=== PATIENT | male | born 1965 | race Hispanic/Latino ===

== ENCOUNTER → 2019-01-24 | Outpatient (CLI) | payer MEDICAID ==
[~2019-01-24] VITALS: Ht 188 cm; Wt 142.0 kg
[~2019-01-24] MED LIST: REGADENOSON 0.4 MG/5 ML PF SYG IVP SCH
== END | disposition home or self-care (01) ==
LOC: SHCH 07:57
PROVIDERS: ATTEND Internal Medicine Cardiovascular Disease
DX: R07.9 Chest pain, unspecified (principal); R06.09 Other forms of dyspnea
CPT/HCPCS: 78452; 93017; 96374; A9500 ×2; J2785

== ENCOUNTER → 2019-01-29 | Outpatient (CLI) | payer MEDICAID | END | disposition home or self-care (01) | LOC: SHCH 12:06 | PROVIDERS: ATTEND Internal Medicine Cardiovascular Disease | DX: I87.2 Venous insufficiency (chronic) (peripheral) (principal); R59.0 Localized enlarged lymph nodes; R07.9 Chest pain, unspecified; R06.09 Other forms of dyspnea | CPT/HCPCS: 93970 ==

== ENCOUNTER → 2019-04-08 | Outpatient (CLI) | payer MEDICAID | END | disposition home or self-care (01) | LOC: SHCH 07:59 | PROVIDERS: ATTEND Internal Medicine Cardiovascular Disease | DX: I82.812 Embolism and thrombosis of superficial veins of left lower extremity (principal); Z09 Encounter for follow-up examination after completed treatment for conditions other than malignant neoplasm | CPT/HCPCS: 93971 ==

== ENCOUNTER → 2022-10-21 | Outpatient (CLI) | payer MEDICAID ==
[2022-10-21 11:57] LABS: BASOPHILS # (AUTO) 0.04 K/uL (0.00-0.20); BASOPHILS % (AUTO) 0.7 % (0.0-5.0); EOSINOPHILS # (AUTO) 0.24 K/uL (0.00-0.70); EOSINOPHILS % (AUTO) 4.1 % (0.0-8.0); HEMATOCRIT 33.9 % (42-54); IMMATURE GRANULOCYTE ABSOLUTE 0.02 K/uL (0-1); LYMPHOCYTES # (AUTO) 2.1 K/uL (1.0-4.8); LYMPHOCYTES % (AUTO) 35.8 % (21.0-51.0); MEAN CORPUSCULAR HEMOGLOBIN 26.8 pg (27.0-33.0); MEAN CORPUSCULAR HGB CONC 31.9 g/dL (32.0-36.0); MEAN CORPUSCULAR VOLUME 84.1 fL (79-99); MONOCYTES # (AUTO) 0.6 K/uL (0.1-1.0); MONOCYTES % (AUTO) 10.5 % (3.0-13.0); NEUTROPHILS # (AUTO) 2.8 K/uL (1.8-7.7); NEUTROPHILS % (AUTO) 48.6 % (40.0-77.0); PLATELET COUNT (AUTO) 262 K/uL (130-400); RED BLOOD CELL COUNT(AUTO) 4.03 MIL/uL (4.50-6.20); RED CELL DISTRIBUTION WIDTH 15.7 % (11.0-15.5); WHITE BLOOD COUNT (AUTO) 5.8 K/uL (4.8-10.8)
[2022-10-21 12:10] LABS: CREATININE 1.2 mg/dL (0.5-1.5); POTASSIUM 4.2 mmol/L (3.5-5.1)
[2022-10-21 12:35] LABS: INR 0.93 (0.85-1.15); PROTHROMBIN TIME 10.3 SEC (9.6-11.6)
[2022-10-21 12:36] LABS: PARTIAL THROMBOPLASTIN TIME 28.5 SEC (26.3-35.5)
== END | disposition home or self-care (01) ==
LOC: LAB 08:41
PROVIDERS: ATTEND Internal Medicine Cardiovascular Disease
DX: I10 Essential (primary) hypertension (principal); I87.1 Compression of vein
CPT/HCPCS: 36415; 80048; 85025; 85610; 85730

== ENCOUNTER → 2024-04-17 | Outpatient (CLI) | payer MEDICAID ==
--- NOTE | 2024-04-17 14:52 | HMCIMG ---
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 There is normal compressibility at all levels. There is no intraluminal clot. There is no occlusion. Adequate response is obtained on augmentation. Impression: No evidence of DVT.
== END | disposition home or self-care (01) ==
LOC: RAH 13:53
PROVIDERS: ATTEND Internal Medicine Cardiovascular Disease
DX: I82.210 Acute embolism and thrombosis of superior vena cava (principal)
CPT/HCPCS: 93970

== ENCOUNTER → 2024-05-29 | Outpatient (CLI) | payer MEDICAID | END | disposition home or self-care (01) | LOC: SHCH 14:19 | PROVIDERS: ATTEND Internal Medicine Cardiovascular Disease | DX: I08.0 Rheumatic disorders of both mitral and aortic valves (principal) | CPT/HCPCS: 93306 ==

== ENCOUNTER → 2024-07-04 | Outpatient (CLI) | payer MEDICAID | END | disposition home or self-care (01) | LOC: SHCH 10:59 | PROVIDERS: ATTEND Internal Medicine Cardiovascular Disease | DX: I70.203 Unspecified atherosclerosis of native arteries of extremities, bilateral legs (principal) | CPT/HCPCS: 93925 ==

== ENCOUNTER 2024-07-17 14:59 | Observation (INO) | payer MEDICAID ==
[~2024-07-17] VITALS: Ht 188 cm; Wt 148.8 kg
--- NOTE | 2024-07-17 15:28 | ERN ---
General Chief Complaint: Shortness of Breath Stated Complaint: SOB Time Seen by MD: 15:01 Source: patient History of Present Illness Initial Comments PATIENT IS A 58-YEAR-OLD MALE COMING IN TO BE EVALUATED FOR SHORTNESS OF BREATH. PATIENT WAS SEEN BY HIS PCP AND WAS SENT IN FOR FURTHER EVALUATION. PATIENT WAS ALSO SEEN BY HIS CONSERVATION SPECIALIST DR. CRUZ WHO STATES THAT PATIENT HAS BEEN COMPLAINING OF SHORTNESS OF BREATH IN HIS HERE FOR FURTHER EVALUATION. Allergies: Coded Allergies: Penicillins (Verified Allergy, Unknown, 08/03/13) Past Medical History Past Medical History: Diabetes-Type II, Hypertension, NE, Stroke Past Surgical History: Other ROS Dictation CONSTITUTIONAL: NO CHILLS, NO FEVER, NO WEAKNESS, NO DIAPHORESIS, NO MALAISE. HEAD/FACE: NO SIGNS OF TRAUMA. EENT: NO EYE PAIN, NO BLURRED VISION, NO TEARING, NO DOUBLE VISION, NO EAR PAIN, NO EAR DISCHARGE, NO NOSE PAIN, NO NASAL CONGESTION, NO THROAT PAIN, NO THROAT SWELLING, NO MOUTH PAIN. RESPIRATORY: NO COUGH, NO ORTHOPNEA, NO SOB, NO STRIDOR, NO WHEEZING. CARDIOVASCULAR: NO CHEST PAIN, NO EDEMA, NO PALPITATIONS, NO SYNCOPE. GASTROINTESTINAL/ABDOMINAL: NO ABDOMINAL PAIN, NO CONSTIPATION, NO DIARRHEA, NO NAUSEA, NO VOMITING. GENITOURINARY: NO ABNORMAL DISCHARGE, NO DYSURIA, NO FREQUENT URINATION, NO HEMATURIA. NO COMPLAINTS OF PAIN IN THE GENITALS. MUSCULOSKELETAL: NO BACK PAIN, NO GOUT, NO JOINT PAIN, NO JOINT SWELLING, NO MUSCLE PAIN, NO MUSCLE STIFFNESS, NO NECK PAIN. INTEGUMENTARY: NO CHANGE IN COLOR, NO CHANGE IN HAIR/NAILS, NO DRYNESS, NO LESION, NO LUMPS, NO RASH. NEUROLOGICAL/PSYCH: NO ANXIETY, NOT DEPRESSED, NO EMOTIONAL PROBLEM, NO HEADACHE, NO NUMBNESS, NO PRE-EXISTING DEFICIT, NO HISTORY OF SEIZURES, NO TREMORS, NO WEAKNESS. HEMATOLOGIC/LYMPHATIC: NOT ANEMIC, NO HISTORY OF BLOOD CLOTS, NO APPARENT BLEEDING, NO BRUISING, GLANDS NOT SWOLLEN. ALL SYSTEMS NEGATIVE, EXCEPT NOTED. Physical Exam Physical Exam Dictation VITAL SIGNS: REVIEWED. GENERAL APPEARANCE: ALERT, ORIENTED X3, NO ACUTE DISTRESS, OBESE. HEAD AND FACE: NON-TRAUMATIC. EYES: PERRL, PINK CONJUNCTIVAS, EYELID NO TRAUMA, ANTERIOR CHAMBER CLEAR. EARS: PINNAS INTACT AND NO SIGNS OF TRAUMA OR ERYTHEMA. EAR CANALS CLEAR AND NO DISCHARGE. TMS NO ERYTHEMA. NOSE: NO DISCHARGE, NO BLEEDING. OROPHARYNX: MOUTH NORMAL, TEETH NO CARIES, TONGUE PINK. PHARYNX CLEAR, NO ERYTHEMA. TONSILS NO EXUDATES, NO ABSCESSES NOTED. MUCOUS MEMBRANE MOIST. NECK: SUPPLE, NON-TENDER, NO THYROMEGALY, NO MASSES, NO JVD, NO BRUITS. BREAST: DEFERRED. CHEST: NO TENDERNESS, NO CREPITUS, NO PARADOXICAL MOVEMENT, NO RETRACTIONS. LUNGS: CLEAR, WELL-VENTILATED, SYMMETRIC, NO RALES, NO WHEEZING, NO RHONCHI, NO STRIDOR, GOOD BREATH SOUNDS BILATERALLY. HEART: REGULAR RATE, REGULAR RHYTHM, NO MURMUR, NO GALLOPS. VASCULAR: NO PERIPHERAL EDEMA. ABDOMEN: SOFT, POSITIVE BOWEL SOUNDS, NONDISTENDED, NO GUARDING, NONTENDER, NO REBOUND, NO MASSES NO HEPATOMEGALY, NO SPLENOMEGALY, NO ILM'S SIGN, NO HERNIAS. RECTAL: DEFERRED. GENITAL: DEFERRED. NEUROLOGICAL: NORMAL SPEECH, GROSS MOTOR FUNCTION INTACT, GROSS SENSORY FUNCTION INTACT. MUSCULOSKELETAL: NECK NONTENDER, FULL RANGE OF MOTION, BACK NONTENDER, FULL RANGE OF MOTION. EXTREMITIES: NONTENDER, FULL RANGE OF MOTION. SKIN: COLOR PINK, DRY, NO TURGOR, NO RASH, NO LACERATIONS, NO ABRASIONS, NO CONTUSIONS. LYMPHATICS: DEFERRED. Results Laboratory and Microbiology Lab and Micro Result Laboratory Tests Test 07/17/24 15:43 07/17/24 15:57 Urine Color YELLOW (YELLOW) Urine Appearance CLOUDY (CLEAR) H Urine pH 6.0 (5.0-8.0) Urine Specific [place] 1.012 (1.001-1.031) Urine Protein 300 mg/dL (NEGATIVE) H Urine Glucose (UA) 200 mg/dL (NEGATIVE) H Urine Ketones NEGATIVE mg/dL (NEGATIVE) Urine Occult Blood LARGE (NEGATIVE) H Urine Nitrate NEGATIVE (NEGATIVE) Urine Bilirubin NEGATIVE mg/dL (NEGATIVE) Urine Urobilinogen 0.2 mg/dL (0.2-1.0) Urine Leukocyte Esterase 500 Taylor/uL (NEGATIVE) H Urine RBC 51-100 /HPF (0-1) H Urine WBC TNTC /HPF (0-1) H Urine WBC Clumps (Auto) MANY /HPF (0-1) Urine Squamous Epithelial Cells RARE /HPF (0-2) Urine Bacteria MANY /HPF (None Seen) Urine Hyaline Casts 2-5 /LPF (0-1 /LPF) H White Blood Count 5.8 K/uL (4.8-10.8) Red Blood Count 4.19 MIL/uL (4.50-6.20) L Hemoglobin 11.4 g/dL (14.0-18.0) L Hematocrit 34.1 % (42-54) L Mean Corpuscular Volume 81.4 fL (79-99) Mean Corpuscular Hemoglobin 27.2 pg (27.0-33.0) Mean Corpuscular Hemoglobin Concent 33.4 g/dL (32.0-36.0) Red Cell Distribution Width 14.1 % (11.0-15.5) Platelet Count 259 K/uL (130-400) Mean Platelet Volume 10.3 fL (7.5-10.5) Immature Granulocyte % (Auto) 0.3 % (0-1) Neutrophils (%) (Auto) 49.2 % (40.0-77.0) Lymphocytes (%) (Auto) 32.6 % (21.0-51.0) Monocytes (%) (Auto) 16.4 % (3.0-13.0) H Eosinophils (%) (Auto) 1.0 % (0.0-8.0) Basophils (%) (Auto) 0.5 % (0.0-5.0) Neutrophils # (Auto) 2.8 K/uL (1.8-7.7) Lymphocytes # (Auto) 1.9 K/uL (1.0-4.8) Monocytes # (Auto) 1.0 K/uL (0.1-1.0) Eosinophils # (Auto) 0.06 K/uL (0.00-0.70) Basophils # (Auto) 0.03 K/uL (0.00-0.20) Absolute Immature Granulocyte (auto 0.02 K/uL (0-1) Nucleated Red Blood Cells 0.0 % (0.0-0.19) White Cell Morphology Comment See comments Prothrombin Time 10.4 SEC (9.6-11.6) Prothromb Time International Ratio 0.98 (0.85-1.15) Activated Partial Thromboplast Time 22.8 SEC (26.3-35.5) L D-Dimer Quantitative (PE/DVT) 2061 ng/mL (0-500) *H Sodium Level 130 mmol/L (136-145) L Potassium Level 3.7 mmol/L (3.5-5.1) Chloride Level 95 mmol/L (101-111) L Carbon Dioxide Level 27 mmol/L (21-32) Blood Urea Nitrogen 28 mg/dL (7-18) H Creatinine 2.1 mg/dL (0.5-1.3) H Glomerular Filtration Rate Calc 36 mL/min (>90) Random Glucose 255 mg/dL (70-105) H Total Calcium 9.4 mg/dL (8.5-10.1) Magnesium Level 2.00 mg/dL (1.80-2.40) Total Creatine Kinase 108 U/L (21-232) Troponin I High Sensitivity 10 ng/L (4-75) B-Type Natriuretic Peptide 46 pg/mL (0-100) Triglycerides Level 200 mg/dL (30-200) Cholesterol Level 194 mg/dL (<200) LDL Cholesterol 82 mg/dL (0-99) HDL Cholesterol 49 mg/dL (29-71) Labs Reviewed?: Yes MDM MDM: Differential diagnosis: Shortness of breath, cardiac history, CAD, Rationale: Tests considered and ordered secondary to shared decision making include: labs, ECG and radiology Previous outside records reviewed: Old ER visits. Risk of complication and/or morbidity or mortality of patient management: None Medications-Per medication reconciliation Need for hospitalization: Patient does meet criteria for hospitalization. Need for emergency major/minor surgery: No There are no social concerns with this patient. Prescription drug management Prescriptions will include symptomatic care Patient's prior external medical records from other ER visits were reviewed by me as indicated. Prior testing and results from previous visits were reviewed. Prior tests were taken into account with medical decision making and resource utilization, independent historian/historians were used to obtain complete medical history. I independently interpreted the test that were performed, results were reviewed by me and considered findings on radiology if ordered. Medical management and examination interpretation discussions were had by me with other qualified healthcare professionals as indicated for the patient's care. Patient is a 58-year-old gentleman coming in to be evaluated for shortness of breath. Per Dr. Cruz the security lead patient is to be evaluated for shortness of breath. Elevated D-dimer kidney function did not allow was to perform a CT angio so V/Q scan will be performed. Patient will be admitted under the care of hospitalist group for ongoing management. ED Course Orders Procedure Category Date Status Time Cbc With Differential LAB 07/17/24 Complete 15:24 Prothrombin Time With LAB 07/17/24 Complete INR 15:24 B-Type Natriuretic LAB 07/17/24 Complete Peptide 15:24 Lipid Panel LAB 07/17/24 Complete 15:24 D-Dimer LAB 07/17/24 Complete 15:24 Chest 1vw RAD 07/17/24 Resulted 15:24 12 Lead Ekg Tracing- EKG 07/17/24 Logged Technical 15:24 Magnesium LAB 07/17/24 Complete 15:24 Creatine Kinase, Total LAB 07/17/24 Complete 15:24 Troponin I High LAB 07/17/24 Complete Sensitivity 15:24 Urinalysis Profile LAB 07/17/24 Complete 15:24 Partial LAB 07/17/24 Complete Thromboplastin Time 15:24 Basic Metabolic Panel LAB 07/17/24 Complete 15:24 Culture Urine SHARI 07/17/24 In Process 16:02 Nm Pulmonary/Lung NM 07/17/24 Logged Vent/Perf Vq 16:26 Levofloxacin 500 PHA 07/17/24 In Process Mg/D5w 100 Ml 17:00 Levofloxacin 250 PHA 07/18/24 In Process Mg/D5w 50ml (Levaquin 17:00 Current Medications Medications (Trade) Dose Ordered Sig/Wily Route PRN Reason Start Time Stop Time Status Last Admin Dose Admin Levofloxacin/ Dextrose 50 ml @ 50 mls/hr Q24H IVPB 07/18/24 17:00 07/28/24 16:59 Levofloxacin/ Dextrose 100 ml @ 100 mls/hr ONCE ONCE IV 07/17/24 17:00 07/17/24 17:59 07/17/24 16:58 Vital Signs Date Time Temp Pulse Resp B/P (MAP) Pulse Ox O2 Delivery O2 Flow Rate FiO2 07/17/24 15:38 87 22 157/84 100 Room Air* 0 21 07/17/24 15:01 98.4 90 20 158/87 99 Room Air DX & DISP Disposition: Inpatient Decision to Admit Time: 17:22 Departure Impression: Primary Impression: Shortness of breath Additional Impression: History of CAD (coronary artery disease) Condition: Stable Referrals: GEOVANY KEANE MD (PCP) KIMBERLEY ALBARRAN MD July 17, 2024 15:28
[2024-07-17 15:58] LABS: APPEARANCE,URINE CLOUDY (CLEAR); BILIRUBIN,URINE NEGATIVE (NEGATIVE); COLOR,URINE YELLOW (YELLOW); GLUCOSE, URINE (UA) 200 mg/dL (NEGATIVE); KETONES,URINE NEGATIVE (NEGATIVE); LEUKOCYTE ESTERASE ,URINE 500 Leu/uL (NEGATIVE); NITRATE,URINE NEGATIVE (NEGATIVE); OCCULT BLOOD,URINE LARGE (NEGATIVE); PROTEIN,URINE 300 mg/dL (NEGATIVE); UROBILINOGEN,URINE 0.2 mg/dL (0.2-1.0)
[2024-07-17 16:01] LABS: ADD UA MICROSCOPIC YES
[2024-07-17 16:06] LABS: BACTERIA,URINE MANY /HPF (None Seen); RBC,URINE 51-100 /HPF (0-1); SQUAMOUS EPITHELIAL CELL,UR RARE /HPF (0-2); WBC CLUMP MANY /HPF (0-1); WBC,URINE TNTC /HPF (0-1)
[2024-07-17 16:12] LABS: BASOPHILS # (AUTO) 0.03 K/uL (0.00-0.20); BASOPHILS % (AUTO) 0.5 % (0.0-5.0); EOSINOPHILS # (AUTO) 0.06 K/uL (0.00-0.70); HEMATOCRIT 34.1 % (42-54); IMMATURE GRANULOCYTE ABSOLUTE 0.02 K/uL (0-1); LYMPHOCYTES # (AUTO) 1.9 K/uL (1.0-4.8); LYMPHOCYTES % (AUTO) 32.6 % (21.0-51.0); MEAN CORPUSCULAR HEMOGLOBIN 27.2 pg (27.0-33.0); MEAN CORPUSCULAR HGB CONC 33.4 g/dL (32.0-36.0); MEAN CORPUSCULAR VOLUME 81.4 fL (79-99); MONOCYTES % (AUTO) 16.4 % (3.0-13.0); NEUTROPHILS # (AUTO) 2.8 K/uL (1.8-7.7); NEUTROPHILS % (AUTO) 49.2 % (40.0-77.0); PLATELET COUNT (AUTO) 259 K/uL (130-400); RED BLOOD CELL COUNT(AUTO) 4.19 MIL/uL (4.50-6.20); RED CELL DISTRIBUTION WIDTH 14.1 % (11.0-15.5); WHITE BLOOD COUNT (AUTO) 5.8 K/uL (4.8-10.8)
[2024-07-17 16:20] LABS: CREATININE 2.1 mg/dL (0.5-1.3); POTASSIUM 3.7 mmol/L (3.5-5.1)
[2024-07-17 16:22] LABS: INR 0.98 (0.85-1.15); PROTHROMBIN TIME 10.4 SEC (9.6-11.6)
[2024-07-17 16:23] LABS: PARTIAL THROMBOPLASTIN TIME 22.8 SEC (26.3-35.5)
--- NOTE | 2024-07-17 16:24 | HMCIMG ---
Exam Type: CHEST 1VW Clinical Information: SOB Comparison: None Findings: The lungs are clear of infiltrates. The heart is enlarged. Bony and soft tissue structures of the chest wall are unremarkable. IMPRESSION: Cardiomegaly. Clear lungs.
[2024-07-17 16:42] LABS: B-TYPE NATRIURETIC PEPTIDE 46 pg/mL (0-100)
[2024-07-17] MEDS: levoFLOXacin 500 MG/D5W 100 ML 100 ML IV ONE (16:58)
--- NOTE | 2024-07-17 17:22 | HP ---
[facility] HISTORY AND PHYSICAL Date of Service: July 17, 2024 Time of Service: 17:15 HISTORY OF PRESENT ILLNESS: [ ] Admission date 07/17/2024 PCP: Dr Jose L Gonsales MD This is a 58-year-old male that presents in ED with evaluation of shortness a breath patient was sent by his PCP. Patient was also seen by his residential life director's Dr. Cruz apparently patient has been complaining about shortness a breath therefore is here for further evaluation. Ongoing for three months patient was started on Lasix given to lower extremity edematous +2. Associated symptoms vomiting he reports it being cleared and salty. Patient denied chest pain, or palpitation. Patient reports this morning he was walking and had a ground level fall and scraped his knee. Patient denies fever and chills, flank pain. Labs results sodium 130 chloride 95 BUN 29 creatinine 2.1 E GFR 36 glucose 255, WBCs 5.8 Hemoglobin 11.4 hematocrit 34.1 platelets 259 UA positive leukocytes esterase 500 PATIENT IS SEEN IN ED PATIENT LYING IN BED; PATIENT APPEARS TO BE UNCOMFORTABLE LAYING IN BED REQUESTED TO SIT IN CHAIR. DENIES CHEST PAIN. REVIEW OF SYSTEMS CONSTITUTIONAL: Denies fevers, chills, or night sweats. No unintentional weight loss reported. NEUROLOGICAL: Denies headache, amaurosis fugax, motor weakness, sensory deficit, vertigo/spinning sensation, gait abnormalities, or tremors. ENT: No hearing loss, otalgia, otorrhea, rhinitis, rhinorrhea, hoarseness, or sore throat. CARDIOVASCULAR: Denies any exertional angina, dyspnea on exertion, orthopnea, p aroxysmal nocturnal dyspnea, palpitations, life-threatening arrhythmias, claudication. PULMONARY: Denies any shortness of breath, cough, phlegm/sputum, hemoptysis, pleuritic chest pain. SLEEP: Denies morning headaches, daytime somnolence or napping. Denies difficulty falling asleep, staying asleep, waking from sleep. Denies knowledge of snoring. GASTROINTESTINAL: Denies any type of dysphagia to either liquids or solids. Denies nausea, vomiting, pyrosis, early satiety, abdominal pain, diarrhea, constipation, or changes in stool consistency or caliber. Denies coffee-ground emesis, hematemesis, hematochezia, or melanotic stools. GENITOURINARY: Denies frequency, urgency, nocturia, hematuria or incontinence (Storage/Irritative symptoms.) Low urinary stream, straining to void, urinary intermittency or hesitancy, splitting of the voiding stream, terminal dribbling. ENDOCRINOLOGIC: Denies polyuria, polydipsia, polyphagia or heat/cold intolerances. HEMATOLOGIC: Denies thrombophilia/previous clots, or coagulopathy/bleeding disorders. ONCOLOGIC: Denies personal history of malignancy. DERMATOLOGIC: Denies rashes or pruritus. PSYCHIATRIC: Denies any suicidal or homicidal ideation. Denies hallucinations. PAST MEDICAL HISTORY: [ ]DM HTN, HLD AND OBESITY [place], STROKE PAST SURGICAL HISTORY: [ ] KNEE SX , NECK SX PAST SOCIAL HISTORY: [ ] FAMILY HISTORY: [ ]NONCONTRIBUTORY Coded Allergies: Penicillins (Verified Allergy, Unknown, 08/03/13) PHYSICAL EXAM GENERAL APPEARANCE: The patient is awake, alert, and oriented, in no acute cardiopulmonary distress. NEUROLOGICAL: Cranial nerves II-XII grossly intact. Motor is 5/5 in bilateral upper and lower extremities proximal to distal. No sensory deficits. HEENT: Face is symmetric. Pupils are equal and reactive. Extraocular movements are intact. NECK: Supple. No JVD. No thyromegaly. No submental, submandibular, pre- /postauricular, occipital or supraclavicular lymphadenopathy. CHEST: Normal chest expansion. No Telemetry. LUNGS: Absence of any rales, rhonchi or any wheezing. CARDIOVASCULAR: Regular. S1 and S2 normal. No appreciable rubs, murmurs or gallops. ABDOMEN: Soft, nontender, and nondistended. There is no rebound, voluntary guarding, or rigidity. : Deferred. No [place]. EXTREMITIES: Non-edematous and not cyanotic. No clubbing. Good capillary refill. SKIN: No skin breakdown. Vital Sign (Last 24 Hours) 07/17/24 07/17/24 15:01 15:38 Temp 98.4 Pulse 87 Resp 22 B/P (MAP) 157/84 Pulse Ox 100 O2 Delivery Room Air* O2 Flow Rate 0 FiO2 21 LABS: Laboratory: Test 07/17/24 15:57 07/17/24 15:43 Range/Units White Blood Count 5.8 4.8-10.8 K/uL Red Blood Count 4.19 L 4.50-6.20 MIL/uL Hemoglobin 11.4 L 14.0-18.0 g/dL Hematocrit 34.1 L 42-54 % Mean Corpuscular Volume 81.4 79-99 fL Mean Corpuscular Hemoglobin 27.2 27.0-33.0 pg Mean Corpuscular Hemoglobin Concent 33.4 32.0-36.0 g/dL Red Cell Distribution Width 14.1 11.0-15.5 % Platelet Count 259 130-400 K/uL Mean Platelet Volume 10.3 7.5-10.5 fL Immature Granulocyte % (Auto) 0.3 0-1 % Neutrophils (%) (Auto) 49.2 40.0-77.0 % Lymphocytes (%) (Auto) 32.6 21.0-51.0 % Monocytes (%) (Auto) 16.4 H 3.0-13.0 % Eosinophils (%) (Auto) 1.0 0.0-8.0 % Basophils (%) (Auto) 0.5 0.0-5.0 % Neutrophils # (Auto) 2.8 1.8-7.7 K/uL Lymphocytes # (Auto) 1.9 1.0-4.8 K/uL Monocytes # (Auto) 1.0 0.1-1.0 K/uL Eosinophils # (Auto) 0.06 0.00-0.70 K/uL Basophils # (Auto) 0.03 0.00-0.20 K/uL Absolute Immature Granulocyte (auto 0.02 0-1 K/uL Nucleated Red Blood Cells 0.0 0.0-0.19 % White Cell Morphology Comment See comments Prothrombin Time 10.4 9.6-11.6 SEC Prothromb Time International Ratio 0.98 0.85-1.15 Activated Partial Thromboplast Time 22.8 L 26.3-35.5 SEC D-Dimer Quantitative (PE/DVT) 2061 *H 0-500 ng/mL Sodium Level 130 L 136-145 mmol/L Potassium Level 3.7 3.5-5.1 mmol/L Chloride Level 95 L 101-111 mmol/L Carbon Dioxide Level 27 21-32 mmol/L Blood Urea Nitrogen 28 H 7-18 mg/dL Creatinine 2.1 H 0.5-1.3 mg/dL Glomerular Filtration Rate Calc 36 >90 mL/min Random Glucose 255 H 70-105 mg/dL Total Calcium 9.4 8.5-10.1 mg/dL Magnesium Level 2.00 1.80-2.40 mg/dL Total Creatine Kinase 108 21-232 U/L Troponin I High Sensitivity 10 4-75 ng/L B-Type Natriuretic Peptide 46 0-100 pg/mL Triglycerides Level 200 30-200 mg/dL Cholesterol Level 194 <200 mg/dL LDL Cholesterol 82 0-99 mg/dL HDL Cholesterol 49 29-71 mg/dL Urine Color YELLOW YELLOW Urine Appearance CLOUDY H CLEAR Urine pH 6.0 5.0-8.0 Urine Specific [place] 1.012 1.001-1.031 Urine Protein 300 H NEGATIVE mg/dL Urine Glucose (UA) 200 H NEGATIVE mg/dL Urine Ketones NEGATIVE NEGATIVE mg/dL Urine Occult Blood LARGE H NEGATIVE Urine Nitrate NEGATIVE NEGATIVE Urine Bilirubin NEGATIVE NEGATIVE mg/dL Urine Urobilinogen 0.2 0.2-1.0 mg/dL Urine Leukocyte Esterase 500 H NEGATIVE Taylor/uL Urine RBC 51-100 H 0-1 /HPF Urine WBC TNTC H 0-1 /HPF Urine WBC Clumps (Auto) MANY 0-1 /HPF Urine Squamous Epithelial Cells RARE 0-2 /HPF Urine Bacteria MANY None Seen /HPF Urine Hyaline Casts 2-5 H 0-1 /LPF /LPF Current Medications Medications (Trade) Dose Ordered Sig/Wily Route PRN Reason Start Time Stop Time Status Last Admin Dose Admin Levofloxacin/ Dextrose 50 ml @ 50 mls/hr Q24H IVPB 07/18/24 17:00 07/28/24 16:59 DIAGNOSTICS / RADIOLOGY: [ ] ASSESSMENT: ongoing Shortness a breath with minimal exertion POA Suspecting PE POA UTI POA Electrolyte derangement sodium 130 BLAINE suspecting ATN POA Diabetes type 2 with hyperglycemia Uncontrolled essential hypertension s/p ground level fall, sustained knee abrasion POA morbid obesity: BMI 42 POA PLAN: [ ] Admit: Medical-surgical with tele condition: Guarded Status: Full code Consultants residential life director's, COBBLER SOLE IVF: NS at 75 mL/hour Antibiotics Levaquin 250 IV every24 hours We will follow urine cultures Test: V/Q scan, renal sonogram CT abd /pelvis without contrast Labs cbc, cmp, mag+ Replace electrolytes as needed as per protocol to keep potassium above 4.0 magnesium 2.0. A.c. HS monitoring with sliding scale coverage Home medications pending to be reviewed by RN nurse. Avoid NSAIDs strict I&O PRN: MEDICATIONS TYLENOL 650 MG PO EVERY 4 HRS FOR FEVER ZOFRAN 4 MG IV EVERY 6 HRS FOR N/V HYDRALAZINE 10 MG IV EVERY 4 HRS SYSTOLIC PRESSURE > 160 Supportive measures: DVT ppx, GI ppx all questions answered time spent: > 35 min Supervising MD: Dr. Lawton c/d This document was generated in part using voice recognition software, occasional wrong word or sound alike substitutions may have occurred due to the inherent limitations of voice recognition software. Read the chart carefully and recognize using context, where the substitutions have occurred. Although every effort was made to edit the content, survival equipment repairer and typing errors may occur ADVANCED CARE PLANNING 1. Which of the following were discussed? Hospice Care - Yes / No Therapeutic options - Yes / No Advance Directives - Yes / No Other discussions - 2. Discussed with who? 3. Voluntary nature of this service was explained to the patient? Yes / No 4. Amount of time spent - 5. Reviewed by Physician? (if this service was performed by NPP) Yes / No ATTESTATION BY PHYSICIAN I have seen and examined the patient. I reviewed the documentation, medical decision making, and treatment plan as noted by the mid-level provider above. I agree with the findings and plan of care. DOUGIE LAWTON MD, ELIZABETH NP July 17, 2024 17:22
[2024-07-17] MEDS ORDERED: acetaMINOPHEN 325 MG TAB PO PRN (17:30)
[2024-07-17] MEDS ORDERED: ondanSETRON 4MG INJ IVP PRN (17:30)
[2024-07-17] MEDS ORDERED: LACTULOSE 20 GM/30 ML UDCUP PO PRN (17:30)
[2024-07-17] MEDS ORDERED: hydrALAZine 20MG/ML VIAL IV PRN (17:30)
--- NOTE | 2024-07-17 18:08 | HMCIMG ---
ULTRASOUND RENAL COMPLETE INDICATION: Acute kidney injury TECHNIQUE: Routine ultrasound of the kidneys and urinary bladder with grayscale and color Doppler imaging was performed in real-time, and subsequently made available for review. COMPARISON: No prior studies available for comparison. FINDINGS: The right kidney measures 13.1 x 5.0 x 5.4 cm. No abnormal mass demonstrated. No evidence for hydronephrosis or shadowing stone. The left kidney measures 12.9 x 5.8 x 6.1 cm. No abnormal mass demonstrated. No evidence for hydronephrosis or shadowing stone. Urinary bladder is incompletely distended. No free fluid demonstrated. IMPRESSION: Normal sonographic appearance of the kidneys and urinary bladder.
[2024-07-17] MEDS: 0.9%NACL 1000ML 1,000 ML IV SCH (18:21)
--- NOTE | 2024-07-17 18:48 | HMCIMG ---
ULTRASOUND VENOUS DOPPLER, BILATERAL LOWER EXTREMITIES INDICATION: Bilateral lower extremity pain and swelling TECHNIQUE: Routine grayscale and color Doppler ultrasound of the bilateral lower extremity veins performed. COMPARISON: No priors. FINDINGS: The demonstrated veins of the bilateral lower extremity including the common femoral vein, femoral vein, and popliteal vein are associated with normal compressibility, augmentation, and flow. Normal respiratory variation was identified. No evidence for echogenic intraluminal thrombus formation. IMPRESSION: No sonographic evidence for deep venous thrombosis within the bilateral lower extremity veins.
--- NOTE | 2024-07-17 18:51 | HMCIMG ---
CT ABDOMEN WITHOUT CONTRAST. CT PELVIS WITHOUT CONTRAST. INDICATION: Abdominal distention and vomiting TECHNIQUE: Routine transaxial imaging using 5 mm slice thickness through the abdomen and pelvis without the administration of IV contrast. Thin slice reconstructions are also provided. Coronal and sagittal reformatted images acquired for interpretation. CT was performed with one or more of the following dose reduction techniques: Automated exposure control, adjustment of the mA and/or kV according to patient size, or use of iterative reconstruction technique. COMPARISON: None FINDINGS: ON NONCONTRAST IMAGING: ABDOMEN: Heart size is normal. Visible lung bases are clear. No abnormal renal calcifications, hydronephrosis, perinephric inflammation, or proximal hydroureter detected. Small simple right renal cyst. The liver is normal in size and smooth in contour without biliary duct dilation. The spleen is normal in size and attenuation. The gallbladder is absent. The pancreas appears normal without pancreatic duct dilation. The adrenal glands appear normal. No significant abdominal, retrocrural or retroperitoneal adenopathy noted. No evidence for intra-abdominal free air or organized fluid collection. No aortic aneurysmal dilation identified. PELVIS: No abnormal calcifications within the urinary bladder or distal ureters. No evidence for free air or organized pelvic fluid collection. No significant pelvic adenopathy detected. Several diverticula along the colon. Terminal ileum appears unremarkable. The appendix appears normal. Mild thoracolumbar spondylosis. IMPRESSION: Diverticulosis coli without evidence for any acute intra-abdominal or pelvic process.
--- NOTE | 2024-07-17 18:54 | EKG ---
[facility] Test Date: 2024-07-17 Test Time: 15:38:24 Pat Name: RIOS MCNAMARA Department: EDHIP Patient ID: [id number] Room: ED 12 Gender: M Reed Repairer: [id number] : 1965 Requested By: KIMBERLEY ALBARRAN Order Number: [id number] Reading MD: Elieser Ornelas Measurements Intervals [place] Rate: 93 P: 36 KS: 172 QRS: 19 QRSD: 95 T: 43 QT: 361 QTc: 450 Interpretive Statements Sinus rhythm No previous ECG available for comparison Electronically Signed On 07-17-2024 21:37:09 CDT by Elieser Ornelas Please click the below link to view image of tracing.
--- NOTE | 2024-07-17 19:18 | NUR ---
PT CARE ASSUMED AT THIS TIME
--- NOTE | 2024-07-17 21:03 | HMCIMG ---
NM PULMONARY/LUNG VENT/PERF VQ HISTORY: sob TECHNIQUE: The patient was injected with 5mCi of technetium 99 MAA. Anterior, posterior and oblique images were obtained. 6 mCi of xenon-133 was used for the ventilation part of the study. Comparison study chest x-ray dated 07/17/2024 FINDINGS: There is homogeneous distribution of the radiotracer in both lungs. There is normal hilar and cardiac attenuation defect. No large wedge-shaped or focal perfusion defects are seen. IMPRESSION: Low probability for PE.
--- NOTE | 2024-07-17 23:13 | NUR ---
REPORT GIVEN TO MIGUEL MCGRATH AT THIS TIME
[2024-07-17 23:25] VITALS: BP 136/88; PULSE 95; RESP 18; TEMP 98.3
[2024-07-18] VITALS (7 sets, daily range): BP systolic 141–182; BP diastolic 69–104; PULSE 54–96; RESP 18–20; TEMP 97.7–98.9; O2SAT 96–97
[2024-07-18] MEDS: guaiFENesin-DM 200/20MG 10ML PO PRN (01:38)
[2024-07-18 03:53] LABS: BASOPHILS # (AUTO) 0.02 K/uL (0.00-0.20); BASOPHILS % (AUTO) 0.3 % (0.0-5.0); EOSINOPHILS % (AUTO) 1.7 % (0.0-8.0); HEMATOCRIT 31.9 % (42-54); IMMATURE GRANULOCYTE ABSOLUTE 0.04 K/uL (0-1); LYMPHOCYTES # (AUTO) 1.7 K/uL (1.0-4.8); LYMPHOCYTES % (AUTO) 28.6 % (21.0-51.0); MEAN CORPUSCULAR HEMOGLOBIN 27.1 pg (27.0-33.0); MEAN CORPUSCULAR HGB CONC 32.9 g/dL (32.0-36.0); MEAN CORPUSCULAR VOLUME 82.4 fL (79-99); MONOCYTES % (AUTO) 17.6 % (3.0-13.0); NEUTROPHILS % (AUTO) 51.1 % (40.0-77.0); PLATELET COUNT (AUTO) 255 K/uL (130-400); RED BLOOD CELL COUNT(AUTO) 3.87 MIL/uL (4.50-6.20); RED CELL DISTRIBUTION WIDTH 14.2 % (11.0-15.5); WHITE BLOOD COUNT (AUTO) 5.9 K/uL (4.8-10.8)
[2024-07-18 04:10] LABS: ALBUMIN 2.5 g/dL (3.5-5.0); BILIRUBIN,TOTAL 0.6 mg/dL (0.2-1.0); CREATININE 2.2 mg/dL (0.5-1.3); MAGNESIUM 2.1 mg/dL (1.80-2.40); POTASSIUM 4.2 mmol/L (3.5-5.1); TOTAL PROTEIN, SERUM 7.4 g/dL (6.0-8.3)
--- NOTE | 2024-07-18 08:58 | NUR ---
DCP: HOME Pt on SSI, has Medicaid. Lives in apt with Teressa [phone]. 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 Provider assists with stand by assist with bath, dressing, home management, transportation, shopping, laundry and meal prep. Pt uses cane to ambulate. PCP is Kory Domingo and uses [facility] for rx needs. Pt denies dc needs. Plans tto return home at me. Brother edy Elizabeth [phone]. Addendum: 07/18/24 at 0903 by NELSON HUANG Amended: Links added.
--- NOTE | 2024-07-18 10:28 | PN ---
[facility] PROGRESS NOTE Date of Service: July 18, 2024 Time of Service: 10:25 SUBJECTIVE: [ ] This is a 58-year-old male that presents in ED with evaluation of shortness a breath patient was sent by his PCP. Patient was also seen by his oncology account specialist's Dr. Cruz apparently patient has been complaining about shortness a breath therefore is here for further evaluation. Ongoing for three months patient was started on Lasix given to lower extremity edematous +2. Associated symptoms vomiting he reports it being cleared and salty. Patient denied chest pain, or palpitation. Patient reports this morning he was walking and had a mal und level fall and scraped his knee. Patient denies fever and chills, flank pain. 07/19/23 patient was sitting in chair edematous to lower extremity improved. Patient's cough improved. Being treated for UTI waiting for oncology account specialist's for further workup if needed. Patient denied chest pain doing well on room air. REVIEW OF SYSTEMS CONSTITUTIONAL: Denies fevers, chills, or night sweats. No unintentional weight loss reported. NEUROLOGICAL: Denies headache, amaurosis fugax, motor weakness, sensory deficit, vertigo/spinning sensation, gait abnormalities, or tremors. ENT: No hearing loss, otalgia, otorrhea, rhinitis, rhinorrhea, hoarseness, or sore throat. CARDIOVASCULAR: Denies any exertional angina, dyspnea on exertion, orthopnea, paroxysmal nocturnal dyspnea, palpitations, life-threatening arrhythmias, claudication. PULMONARY: Denies any shortness of breath, cough, phlegm/sputum, hemoptysis, pleuritic chest pain. SLEEP: Denies morning headaches, daytime somnolence or napping. Denies difficulty falling asleep, staying asleep, waking from sleep. Denies knowledge of snoring. GASTROINTESTINAL: Denies any type of dysphagia to either liquids or solids. Denies nausea, vomiting, pyrosis, early satiety, abdominal pain, diarrhea, constipation, or changes in stool consistency or caliber. Denies coffee-ground emesis, hematemesis, hematochezia, or melanotic stools. GENITOURINARY: Denies frequency, urgency, nocturia, hematuria or incontinence (Storage/Irritative symptoms.) Low urinary stream, straining to void, urinary intermittency or hesitancy, splitting of the voiding stream, terminal dribbling. ENDOCRINOLOGIC: Denies polyuria, polydipsia, polyphagia or heat/cold intolerances. HEMATOLOGIC: Denies thrombophilia/previous clots, or coagulopathy/bleeding disorders. ONCOLOGIC: Denies personal history of malignancy. DERMATOLOGIC: Denies rashes or pruritus. PSYCHIATRIC: Denies any suicidal or homicidal ideation. Denies hallucinations. PHYSICAL EXAM GENERAL APPEARANCE: The patient is awake, alert, and oriented, in no acute cardiopulmonary distress. NEUROLOGICAL: Cranial nerves II-XII grossly intact. Motor is 5/5 in bilateral upper and lower extremities proximal to distal. No sensory deficits. HEENT: Face is symmetric. Pupils are equal and reactive. Extraocular movements are intact. NECK: Supple. No JVD. No thyromegaly. No submental, submandibular, pre-/postauricular, occipital or supraclavicular lymphadenopathy. CHEST: Normal chest expansion. No Telemetry. LUNGS: Absence of any rales, rhonchi or any wheezing. CARDIOVASCULAR: Regular. S1 and S2 normal. No appreciable rubs, murmurs or gallops. ABDOMEN: Soft, nontender, and nondistended. There is no rebound, voluntary guarding, or rigidity. : Deferred. No [place]. EXTREMITIES: Non-edematous and not cyanotic. No clubbing. Good capillary refill. SKIN: No skin breakdown. Vital Signs (last 8hr) Date Time Temp Pulse Resp B/P (MAP) Pulse Ox O2 Delivery O2 Flow Rate FiO2 07/18/24 08:13 99.0 54 19 155/79 97 07/18/24 04:00 98.4 96 18 146/94 94 Room Air LABS: Laboratory: Test 07/18/24 03:20 07/17/24 15:57 07/17/24 15:43 Range/Units White Blood Count 5.9 4.8-10.8 K/uL Red Blood Count 3.87 L 4.50-6.20 MIL/uL Hemoglobin 10.5 L 14.0-18.0 g/dL Hematocrit 31.9 L 42-54 % Mean Corpuscular Volume 82.4 79-99 fL Mean Corpuscular Hemoglobin 27.1 27.0-33.0 pg Mean Corpuscular Hemoglobin Concent 32.9 32.0-36.0 g/dL Red Cell Distribution Width 14.2 11.0-15.5 % Platelet Count 255 130-400 K/uL Mean Platelet Volume 10.9 H 7.5-10.5 fL Immature Granulocyte % (Auto) 0.7 0-1 % Neutrophils (%) (Auto) 51.1 40.0-77.0 % Lymphocytes (%) (Auto) 28.6 21.0-51.0 % Monocytes (%) (Auto) 17.6 H 3.0-13.0 % Eosinophils (%) (Auto) 1.7 0.0-8.0 % Basophils (%) (Auto) 0.3 0.0-5.0 % Neutrophils # (Auto) 3.0 1.8-7.7 K/uL Lymphocytes # (Auto) 1.7 1.0-4.8 K/uL Monocytes # (Auto) 1.0 0.1-1.0 K/uL Eosinophils # (Auto) 0.10 0.00-0.70 K/uL Basophils # (Auto) 0.02 0.00-0.20 K/uL Absolute Immature Granulocyte (auto 0.04 0-1 K/uL Nucleated Red Blood Cells 0.0 0.0-0.19 % Sodium Level 130 L 136-145 mmol/L Potassium Level 4.2 3.5-5.1 mmol/L Chloride Level 95 L 101-111 mmol/L Carbon Dioxide Level 28 21-32 mmol/L Blood Urea Nitrogen 30 H 7-18 mg/dL Creatinine 2.2 H 0.5-1.3 mg/dL Glomerular Filtration Rate Calc 34 >90 mL/min Random Glucose 285 H 70-105 mg/dL Total Calcium 8.9 8.5-10.1 mg/dL Magnesium Level 2.10 1.80-2.40 mg/dL Total Bilirubin 0.6 0.2-1.0 mg/dL Aspartate Amino Transf (AST/SGOT) 27 10-37 U/L Alanine Aminotransferase (ALT/SGPT) 32 12-78 U/L Alkaline Phosphatase 87 50-136 U/L Total Protein 7.4 6.0-8.3 g/dL Albumin 2.5 L 3.5-5.0 g/dL White Cell Morphology Comment See comments Prothrombin Time 10.4 9.6-11.6 SEC Prothromb Time International Ratio 0.98 0.85-1.15 Activated Partial Thromboplast Time 22.8 L 26.3-35.5 SEC D-Dimer Quantitative (PE/DVT) 2061 *H 0-500 ng/mL Total Creatine Kinase 108 21-232 U/L Troponin I High Sensitivity 10 4-75 ng/L B-Type Natriuretic Peptide 46 0-100 pg/mL Triglycerides Level 200 30-200 mg/dL Cholesterol Level 194 <200 mg/dL LDL Cholesterol 82 0-99 mg/dL HDL Cholesterol 49 29-71 mg/dL Urine Color YELLOW YELLOW Urine Appearance CLOUDY H CLEAR Urine pH 6.0 5.0-8.0 Urine Specific [place] 1.012 1.001-1.031 Urine Protein 300 H NEGATIVE mg/dL Urine Glucose (UA) 200 H NEGATIVE mg/dL Urine Ketones NEGATIVE NEGATIVE mg/dL Urine Occult Blood LARGE H NEGATIVE Urine Nitrate NEGATIVE NEGATIVE Urine Bilirubin NEGATIVE NEGATIVE mg/dL Urine Urobilinogen 0.2 0.2-1.0 mg/dL Urine Leukocyte Esterase 500 H NEGATIVE Taylor/uL Urine RBC 51-100 H 0-1 /HPF Urine WBC TNTC H 0-1 /HPF Urine WBC Clumps (Auto) MANY 0-1 /HPF Urine Squamous Epithelial Cells RARE 0-2 /HPF Urine Bacteria MANY None Seen /HPF Urine Hyaline Casts 2-5 H 0-1 /LPF /LPF Current Medications Medications (Trade) Dose Ordered Sig/Wily Route PRN Reason Start Time Stop Time Status Last Admin Dose Admin Acetaminophen (TYLenol 325MG TAB) 650 mg Q4H PRN PO TEMPERATURE GREATER THAN 101.5 07/17/24 17:30 08/16/24 17:29 Famotidine (Pepcid 20mg Tab) 20 mg DAILY PO 07/18/24 09:00 08/17/24 08:59 Guaifenesin/ Dextromethorphan (RobiTUSSin DM 200/20MG 10ML) 15 ml Q4HPRN PRN PO COUGH 07/18/24 01:30 08/17/24 01:29 07/18/24 06:18 15 ML Hydralazine HCl (APRESOLine 20MG INJ) 5 mg Q4H PRN IV ADMINISTER FOR SBP > 160 07/17/24 17:30 08/16/24 17:29 Lactulose (Constulose 20gm/ 30ml Udcup) 20 gm BID PRN PO CONSTIPATION 07/17/24 17:30 08/16/24 17:29 Levofloxacin/ Dextrose 50 ml @ 50 mls/hr Q24H IVPB 07/18/24 17:00 07/28/24 16:59 Ondansetron HCl (zoFRAN 4MG INJ) 4 mg Q6H PRN IVP NAUSEA/VOMITING 07/17/24 17:30 08/16/24 17:29 Sodium Chloride 1,000 ml @ 75 mls/hr [id number] IV 07/17/24 17:30 08/16/24 17:29 07/18/24 06:19 75 MLS/HR DIAGNOSTICS / RADIOLOGY: [ ] ASSESSMENT: ongoing Shortness a breath with minimal exertion POA Suspecting PE POA LOW PROBABILITY PE UTI POA Electrolyte derangement sodium 130 BLAINE suspecting ATN POA Diabetes type 2 with hyperglycemia Uncontrolled essential hypertension s/p ground level fall, sustained knee abrasion POA morbid obesity: BMI 42 POA PLAN: [ ] Admit: Medical-surgical with tele condition: Guarded Status: Full code Consultants oncology account specialist's, VASCULAR TECH IVF: NS at 75 mL/hour Antibiotics Levaquin 250 IV every24 hours We will follow urine cultures Test: V/Q scanNOTED: WILL BE STARTED ON HEPARIN 5000 UNITS Q12 HRS WILL WAIT FOR HAWK MISSILE SYSTEM CREWMEMBER renal sonogram CT abd /pelvis without contrast noted Labs cbc, cmp, mag+ Replace electrolytes as needed as per protocol to keep potassium above 4.0 magn esium 2.0. A.c. HS monitoring with sliding scale coverage Home medications pending to be reviewed by RN nurse. Avoid NSAIDs strict I&O HYDRALAZINE 10 MG IV EVERY 4 HRS SYSTOLIC PRESSURE > 160 Supportive measures: DVT ppx, GI ppx all questions answered time spent: > 35 min Supervising MD: Dr. Lawton c/d This document was generated in part using voice recognition software, occasional wrong word or sound alike substitutions may have occurred due to the inherent limitations of voice recognition software. Read the chart carefully and recognize using context, where the substitutions have occurred. Although every effort was made to edit the content, packing house supervisor and typing errors may occur ATTESTATION BY PHYSICIAN I have seen and examined the patient. I reviewed the documentation, medical decision making, and treatment plan as noted by the mid-level provider above. I agree with the findings and plan of care. DOUGIE LAWTON MD, ELIZABETH NP July 18, 2024 10:28
[2024-07-18] MEDS: FAMOTIDINE 20MG TAB PO SCH (12:02)
[2024-07-18] MEDS: HEParin 5,000 UNIT VIAL SQ SCH (12:06)
--- NOTE | 2024-07-18 12:21 | HMCIMG ---
Exam Type: US ARTERIAL BILAT LOW EXT DUPL Clinical Information: SWELLIHNG TO LOWER EXT: RULED OUT OCCULSION Comparison: None Findings: Diffuse bilateral plaque is identified. There are normal triphasic waveforms of the right common femoral artery, right mid superficial femoral artery, left common femoral artery through the superficial femoral artery, left popliteal artery, left runoff. There are biphasic waveforms of the right proximal and distal superficial femoral artery, right popliteal artery, right runoff consistent with moderate nonocclusive hemodynamically significant disease. IMPRESSION: Peripheral vascular disease as noted.
[2024-07-18] MEDS ORDERED: hydrALAZine 20MG/ML VIAL IV PRN (13:00)
--- NOTE | 2024-07-18 14:56 | CONS ---
Cardiology Consult Note Attending Learning And Development Analyst: Dr. Ismael Goel Primary Learning And Development Analyst: Dr. Sunny Cruz Consulting Physician: Hospitalist Date of Service: 07/18/2024 Reason for Consult: NICOLE HPI: This is a 58y/o male with a past medical history of HTN, HLP, DM2, normal LV systolic function (LVEF: 55-60% by echo done 05/29/2024), normal Lexiscan stress test done on 01/24/2019, CVI s/p left lower extremity venous ablation done on 01/24/2019, and morbid obesity who presents after suffering a syncopal event. The patient complains of NICOLE of 6 months in duration. The symptoms began spontan eously and over the ensuing timeframe his symptoms have been constant and have progressively worsened. Previously the patient could walk more that 1 block without issue or limitation, but prior to admission his symptoms would develop after walking less than half a block. The symptoms were exacerbated by fast paced walking and would slowly resolve with rest. Associated symptoms include chest pain (pressure like in quality and 5/10 in intensity). Pertinent negatives include headache, dizziness, palpitations, PND, orthopnea, abdominal pain, weight gain, significant lower extremity swelling, diaphoresis, fever, or chills. The date of admission, the patient states he suffered a syncopal event while walking, but denies any precipitating symptoms, tonic clonic movements, loss of bowel or bladder function, or post ictal state. Upon regaining consciousness he endorsed chest pain, shortness of breath, nausea, and vomiting. The patient was evaluated by his Primary Learning And Development Analyst, Dr. Sunny Cruz, later that day, who advised him to come to the hospital for further evaluation and treatment. Cardiology was consulted for treatment recommendations. PMH: Listed above PSH: Listed above FH: Noncontributory SH: Denies alcohol, tobacco, or illicit drug use. Allergies: Coded Allergies: Penicillins (Verified Allergy, Unknown, 08/03/13) Review of systems: General: As per the HPI HEENT: Denies changes in vision, earache or sore throat Neck: Denies pain or stiffness Cardio: As per the HPI Pulm: As per the HPI GI: As per the HPI MSK: Positive for abrasion to the left knee. Heme: Denies anemia, easy bruising, or bleeding. Neuro: As per the HPI Psyche: Denies anxiety, depression, or suicidal ideation. Physical Exam: Vital Signs Date Time Temp Pulse Resp B/P (MAP) Pulse Ox O2 Delivery O2 Flow Rate FiO2 07/18/24 12:07 97 Room Air* 0 21 07/18/24 12:00 98.1 81 19 162/69 General: Alert and oriented. NAD. Chronically ill appearing. HEENT: NC/AT. Oral mucosa is moist. Neck: No masses, JVD, or carotid bruits Lungs: NRD. SCM. Bilateral air entry. CTA bilaterally. No obvious wheezing, rales or rhonchi. Cardio: Regular rate. Normal S1 and S2, +S4. No obvious murmurs, gallops, or rubs noted. Abdomen: Obese abdomen. Soft. NT. ND. Normal active bowel sounds x 4 quadrants. Extremities: Diminished throughout. Hyperpigmentation noted to the bilateral lower extremities. Abrasion noted to the left knee. Neuro: CN II-XII were grossly intact. No obvious focal deficits. Labs: Laboratory Tests Test 07/17/24 15:43 07/17/24 15:57 07/18/24 03:20 07/18/24 11:36 Range/Units Urine Color YELLOW YELLOW Urine Appearance CLOUDY H CLEAR Urine pH 6.0 5.0-8.0 Urine Specific [place] 1.012 1.001-1.031 Urine Protein 300 H NEGATIVE mg/dL Urine Glucose (UA) 200 H NEGATIVE mg/dL Urine Ketones NEGATIVE NEGATIVE mg/dL Urine Occult Blood LARGE H NEGATIVE Urine Nitrate NEGATIVE NEGATIVE Urine Bilirubin NEGATIVE NEGATIVE mg/dL Urine Urobilinogen 0.2 0.2-1.0 mg/dL Urine Leukocyte Esterase 500 H NEGATIVE Taylor/uL Urine RBC 51-100 H 0-1 /HPF Urine WBC TNTC H 0-1 /HPF Urine WBC Clumps (Auto) MANY 0-1 /HPF Urine Squamous Epithelial Cells RARE 0-2 /HPF Urine Bacteria MANY None Seen /HPF Urine Hyaline Casts 2-5 H 0-1 /LPF /LPF White Blood Count 5.8 5.9 4.8-10.8 K/uL Red Blood Count 4.19 L 3.87 L 4.50-6.20 MIL/uL Hemoglobin 11.4 L 10.5 L 14.0-18.0 g/dL Hematocrit 34.1 L 31.9 L 42-54 % Mean Corpuscular Volume 81.4 82.4 79-99 fL Mean Corpuscular Hemoglobin 27.2 27.1 27.0-33.0 pg Mean Corpuscular Hemoglobin Concent 33.4 32.9 32.0-36.0 g/dL Red Cell Distribution Width 14.1 14.2 11.0-15.5 % Platelet Count 259 255 130-400 K/uL Mean Platelet Volume 10.3 10.9 H 7.5-10.5 fL Immature Granulocyte % (Auto) 0.3 0.7 0-1 % Neutrophils (%) (Auto) 49.2 51.1 40.0-77.0 % Lymphocytes (%) (Auto) 32.6 28.6 21.0-51.0 % Monocytes (%) (Auto) 16.4 H 17.6 H 3.0-13.0 % Eosinophils (%) (Auto) 1.0 1.7 0.0-8.0 % Basophils (%) (Auto) 0.5 0.3 0.0-5.0 % Neutrophils # (Auto) 2.8 3.0 1.8-7.7 K/uL Lymphocytes # (Auto) 1.9 1.7 1.0-4.8 K/uL Monocytes # (Auto) 1.0 1.0 0.1-1.0 K/uL Eosinophils # (Auto) 0.06 0.10 0.00-0.70 K/uL Basophils # (Auto) 0.03 0.02 0.00-0.20 K/uL Absolute Immature Granulocyte (auto 0.02 0.04 0-1 K/uL Nucleated Red Blood Cells 0.0 0.0 0.0-0.19 % White Cell Morphology Comment See comments Prothrombin Time 10.4 9.6-11.6 SEC Prothromb Time International Ratio 0.98 0.85-1.15 Activated Partial Thromboplast Time 22.8 L 26.3-35.5 SEC D-Dimer Quantitative (PE/DVT) 2060 *H 0-500 ng/mL Sodium Level 130 L 130 L 136-145 mmol/L Potassium Level 3.7 4.2 3.5-5.1 mmol/L Chloride Level 95 L 95 L 101-111 mmol/L Carbon Dioxide Level 27 28 21-32 mmol/L Blood Urea Nitrogen 28 H 30 H 7-18 mg/dL Creatinine 2.1 H 2.2 H 0.5-1.3 mg/dL Glomerular Filtration Rate Calc 36 34 >90 mL/min Random Glucose 255 H 285 H 70-105 mg/dL Total Calcium 9.4 8.9 8.5-10.1 mg/dL Magnesium Level 2.00 2.10 1.80-2.40 mg/dL Total Creatine Kinase 108 21-232 U/L Troponin I High Sensitivity 10 4-75 ng/L B-Type Natriuretic Peptide 46 0-100 pg/mL Triglycerides Level 200 30-200 mg/dL Cholesterol Level 194 <200 mg/dL LDL Cholesterol 82 0-99 mg/dL HDL Cholesterol 49 29-71 mg/dL Total Bilirubin 0.6 0.2-1.0 mg/dL Aspartate Amino Transf (AST/SGOT) 27 10-37 U/L Alanine Aminotransferase (ALT/SGPT) 32 12-78 U/L Alkaline Phosphatase 87 50-136 U/L Total Protein 7.4 6.0-8.3 g/dL Albumin 2.5 L 3.5-5.0 g/dL Whole Blood Glucose 301 H 70-110 MG/DL Assessment: -Syncope -NICOLE -Elevated D Dimer, DVT/PE ruled out -UTI -Electrolyte derangement -BLAINE vs baseline CKD stage IIIB -HTN -HLP -DM2 -Normal LV systolic function (LVEF: 55-60% by echo done 05/29/2024) -Normal Lexiscan stress test done on 01/24/2019 -CVI s/p left lower extremity venous ablation done on 01/24/2019 -Morbid obesity Plan: 1. Syncope -Stable -The etiology behind the syncopal event remains unknown, but thus far a PE has been ruled out. In addition, systolic dysfunction or a structural abnormality was ruled out in his echocardiogram done in May, and thus far telemetry has not identified any underlying arrhythmias. -However, the syncopal event may have been induced by the patient's UTI and electrolyte abnormalities in combination with volume depletion. -Recommend checking orthostatic vital signs. -Please keep the patient on continuous telemetry monitoring while on the inpatient service. 2. NICOLE -Stable -BNP: 46 -The etiology behind the patient's symptoms is unknown, but acute HFpEF and an underlying PE have been ruled out. Remaining differentials include an underlying pulmonary etiology or deconditioned state. -In any case, we do not recommend any further cardiac workup/testing/procedures. Consider pulmonary consultation. Thank you for this interesting consult and allowing us to participate in the care of your patient. We will be signing off of the case. Please have the patient follow up with Cardiology, Dr. Sunny Cruz, 2-4 weeks after discharge. This case was discussed with my Supervising Physician, Dr. Ismael Goel, and the above mentioned plan was formulated and agreed upon. -Consult Note written by Elisa Collins, MSN, ENTERTAINMENT AGENT, AGACNP- ELISA COLLINS GRAIN ELEVATOR OPERATOR July 18, 2024 14:55
[2024-07-18 15:03] LABS: HEMOGLOBIN A1C 10.8 % (4.0-6.0)
--- NOTE | 2024-07-18 15:53 | CONS ---
NEPHROLOGY CONSULTATION NOTE Date/Time Patient Seen: July 18, 2024 Reason for Consultation: Renal failure HISTORY OF PRESENT ILLNESS: This is a 58-year-old male that presents in ED with evaluation of shortness a breath patient was sent by his PCP. Patient was also seen by his crab fisherman's Dr. Cruz apparently patient has been complaining about shortness a breath therefore is here for further evaluation. He continues on gentle IV hydration. He has been started on antibiotics Continues to be followed by Cardiology He was noted to have elevated BUN/creatinine Renal function remains elevated Electrolytes are stable He was seen in the medical floor, in no acute he continues to complain of lower extremity edema No family at the bedside Prognosis remains guarded REVIEW OF SYSTEMS: GENERAL: Positive for lower extremity edema and shortness of breath NEUROLOGIC: Negative for any blurry vision, blind spots, double vision, facial asymmetry, dysphagia, dysarthria, hemiparesis, hemisensory deficits, vertigo, ataxia. HEENT: Negative for any head trauma, neck trauma, neck stiffness, photophobia, phonophobia, sinusitis, rhinitis. CARDIAC: Negative for any chest pain, dyspnea on exertion, paroxysmal nocturnal dyspnea, peripheral edema. PULMONARY: Negative for any shortness of breath, wheezing, COPD, or TB exposure. GASTROINTESTINAL: Negative for any abdominal pain, nausea, vomiting, bright red blood per rectum, melena. GENITOURINARY: Negative for any dysuria, hematuria, incontinence. INTEGUMENTARY: Negative for any rashes, cuts, insect bites. RHEUMATOLOGIC: Negative for any joint pains, photosensitive rashes, history of vasculitis or kidney problems. HEMATOLOGIC: Negative for any abnormal bruising, frequent infections or bleeding. PAST MEDICAL HISTORY: Diabetes mellitus type 2 Hypertension Hyperlipidemia History of NC History of CVA Obesity PAST SURGICAL HISTORY: Knee surgery Neck surgery PAST SOCIAL HISTORY: Noncontributory FAMILY HISTORY: Noncontributory PHYSICAL EXAM: GENERAL: Alert and oriented x 3. No acute distress. Well-nourished. EYES: EOMI. Anicteric. HENT: Moist mucous membranes. No scleral icterus. No cervical lymphadenopathy. LUNGS: Clear to auscultation bilaterally. No accessory muscle use. CARDIOVASCULAR: Regular rate and rhythm. No murmur. No JVD. ABDOMEN: Soft, non-tender and non-distended. No palpable masses. EXTREMITIES: 2+ edema. Non-tender. SKIN: No rashes or lesions. Warm. NEUROLOGIC: No focal neurological deficits. CN II-XII grossly intact, but not individually tested. PSYCHIATRIC: Cooperative. Appropriate mood and affect. MEDICATIONS: [ ] Current Medications Medications (Trade) Dose Ordered Sig/Wily Route PRN Reason Start Time Stop Time Status Last Admin Dose Admin Acetaminophen (TYLenol 325MG TAB) 650 mg Q4H PRN PO TEMPERATURE GREATER THAN 101.5 07/17/24 17:30 08/16/24 17:29 Famotidine (Pepcid 20mg Tab) 20 mg DAILY PO 07/18/24 09:00 08/17/24 08:59 07/18/24 12:02 20 MG Guaifenesin/ Dextromethorphan (RobiTUSSin DM 200/20MG 10ML) 15 ml Q4HPRN PRN PO COUGH 07/18/24 01:30 08/17/24 01:29 07/18/24 06:18 15 ML Heparin Sodium (Porcine) (HEParin 5,000 UNIT VIAL) 5,000 unit Q12H SQ 07/18/24 10:30 08/17/24 10:29 07/18/24 12:06 5,000 UNIT Hydralazine HCl (APRESOLine 20MG INJ) 5 mg Q4H PRN IV ADMINISTER FOR SBP > 160 07/17/24 17:30 07/18/24 12:36 DC Hydralazine HCl (APRESOLine 20MG INJ) 5 mg Q6H PRN IV ADMINISTER FOR SBP > 160 07/18/24 13:00 08/17/24 12:59 Lactulose (Constulose 20gm/ 30ml Udcup) 20 gm BID PRN PO CONSTIPATION 07/17/24 17:30 08/16/24 17:29 Levofloxacin/ Dextrose 50 ml @ 50 mls/hr Q24H IVPB 07/18/24 17:00 07/28/24 16:59 Ondansetron HCl (zoFRAN 4MG INJ) 4 mg Q6H PRN IVP NAUSEA/VOMITING 07/17/24 17:30 08/16/24 17:29 Sodium Chloride 1,000 ml @ 75 mls/hr [id number] IV 07/17/24 17:30 08/16/24 17:29 07/18/24 06:19 75 MLS/HR Vital Signs (last 8hr) Date Time Temp Pulse Resp B/P (MAP) Pulse Ox O2 Delivery O2 Flow Rate FiO2 07/18/24 12:07 97 Room Air* 0 21 07/18/24 12:00 98.1 81 19 162/69 98 Room Air 07/18/24 08:13 99.0 54 19 155/79 97 DIAGNOSTICS / RADIOLOGY: REASON: SWELLIHNG TO LOWER EXT: RULED OUT OCCULSION ORDERING PHYSICIAN: ANDERS GUTIERREZ NP PROCEDURE: ART B LE - US ARTERIAL BILAT LOW EXT DUPL Exam Type: US ARTERIAL BILAT LOW EXT DUPL Clinical Information: SWELLIHNG TO LOWER EXT: RULED OUT OCCULSION Comparison: None Findings: Diffuse bilateral plaque is identified. There are normal triphasic waveforms of the right common femoral artery, right mid superficial femoral artery, left common femoral artery through the superficial femoral artery, left popliteal artery, left runoff. There are biphasic waveforms of the right proximal and distal superficial femoral artery, right popliteal artery, right runoff consistent with moderate nonocclusive hemodynamically significant disease. IMPRESSION: Peripheral vascular disease as noted. DICTATED BY: MALORIE DE LEÓN MD DATE: 07/18/24 1217 REASON: swellin g ORDERING PHYSICIAN: ANDERS GUTIERREZ NP PROCEDURE: VENOUS MAGI - US VENOUS DOPPLER BILATERAL ULTRASOUND VENOUS DOPPLER, BILATERAL LOWER EXTREMITIES INDICATION: Bilateral lower extremity pain and swelling TECHNIQUE: Routine grayscale and color Doppler ultrasound of the bilateral lower extremity veins performed. COMPARISON: No priors. FINDINGS: The demonstrated veins of the bilateral lower extremity including the common femoral vein, femoral vein, and popliteal vein are associated with normal compressibility, augmentation, and flow. Normal respiratory variation was identified. No evidence for echogenic intraluminal thrombus formation. IMPRESSION: No sonographic evidence for deep venous thrombosis within the bilateral lower extremity veins. DICTATED BY: GASTON BURNETT MD DATE: 07/17/24 1845 REASON: abd distention, vomiting ORDERING PHYSICIAN: ANDERS GUTIERREZ NP PROCEDURE: ABD PEL WO - CT ABDOMEN/PELVIS W/O CONTRAST CT ABDOMEN WITHOUT CONTRAST. CT PELVIS WITHOUT CONTRAST. INDICATION: Abdominal distention and vomiting TECHNIQUE: Routine transaxial imaging using 5 mm slice thickness through the abdomen and pelvis without the administration of IV contrast. Thin slice reconstructions are also provided. Coronal and sagittal reformatted images acquired for interpretation. CT was performed with one or more of the following dose reduction techniques: Automated exposure control, adjustment of the mA and/or kV according to patient size, or use of iterative reconstruction technique. COMPARISON: None FINDINGS: ON NONCONTRAST IMAGING: ABDOMEN: Heart size is normal. Visible lung bases are clear. No abnormal renal calcifications, hydronephrosis, perinephric inflammation, or proximal hydroureter detected. Small simple right renal cyst. The liver is normal in size and smooth in contour without biliary duct dilation. The spleen is normal in size and attenuation. The gallbladder is absent. The pancreas appears normal without pancreatic duct dilation. The adrenal glands appear normal. No significant abdominal, retrocrural or retroperitoneal adenopathy noted. No evidence for intra-abdominal free air or organized fluid collection. No aortic aneurysmal dilation identified. PELVIS: No abnormal calcifications within the urinary bladder or distal ureters. No evidence for free air or organized pelvic fluid collection. No significant pelvic adenopathy detected. Several diverticula along the colon. Terminal ileum appears unremarkable. The appendix appears normal. Mild thoracolumbar spondylosis. IMPRESSION: Diverticulosis coli without evidence for any acute intra-abdominal or pelvic process. DICTATED BY: GASTON BURNETT MD DATE: 07/17/24 2975 REASON: [place] ORDERING PHYSICIAN: ANDERS GUTIERREZ NP PROCEDURE: RENAL - US RENAL SONOGRAM ULTRASOUND RENAL COMPLETE INDICATION: Acute kidney injury TECHNIQUE: Routine ultrasound of the kidneys and urinary bladder with grayscale and color Doppler imaging was performed in real-time, and subsequently made available for review. COMPARISON: No prior studies available for comparison. FINDINGS: The right kidney measures 13.1 x 5.0 x 5.4 cm. No abnormal mass demonstrated. No evidence for hydronephrosis or shadowing stone. The left kidney measures 12.9 x 5.8 x 6.1 cm. No abnormal mass demonstrated. No evidence for hydronephrosis or shadowing stone. Urinary bladder is incompletely distended. No free fluid demonstrated. IMPRESSION: Normal sonographic appearance of the kidneys and urinary bladder. DICTATED BY: GASTON BURNETT MD DATE: 07/17/24 5164 REASON: sob ORDERING PHYSICIAN: KIMBERLEY ALBARRAN MD PROCEDURE: PULM V P - NM PULMONARY/LUNG VENT/PERF VQ NM PULMONARY/LUNG VENT/PERF VQ HISTORY: sob TECHNIQUE: The patient was injected with 5mCi of technetium 99 MAA. Anterior, posterior and oblique images were obtained. 6 mCi of xenon-133 was used for the ventilation part of the study. Comparison study chest x-ray dated 07/17/2024 FINDINGS: There is homogeneous distribution of the radiotracer in both lungs. There is normal hilar and cardiac attenuation defect. No large wedge-shaped or focal perfusion defects are seen. IMPRESSION: Low probability for PE. DICTATED BY: SHAR CHU MD DATE: 07/17/242058 REASON: SOB ORDERING PHYSICIAN: KIMBERLEY ALBARRAN MD PROCEDURE: CXR1VW - CHEST 1VW Exam Type: CHEST 1VW Clinical Information: SOB Comparison: None Findings: The lungs are clear of infiltrates. The heart is enlarged. Bony and soft tissue structures of the chest wall are unremarkable. IMPRESSION: Cardiomegaly. Clear lungs. DICTATED BY: MALORIE DE LEÓN MD DATE: 07/17/24 162 LABORATORY: [ ] Hematology Labs: Test 07/18/24 03:20 07/17/24 15:57 Range/Units White Blood Count 5.9 4.8-10.8 K/uL Red Blood Count 3.87 L 4.50-6.20 MIL/uL Hemoglobin 10.5 L 14.0-18.0 g/dL Hematocrit 31.9 L 42-54 % Mean Corpuscular Volume 82.4 79-99 fL Mean Corpuscular Hemoglobin 27.1 27.0-33.0 pg Mean Corpuscular Hemoglobin Concent 32.9 32.0-36.0 g/dL Red Cell Distribution Width 14.2 11.0-15.5 % Platelet Count 255 130-400 K/uL Mean Platelet Volume 10.9 H 7.5-10.5 fL Immature Granulocyte % (Auto) 0.7 0-1 % Neutrophils (%) (Auto) 51.1 40.0-77.0 % Lymphocytes (%) (Auto) 28.6 21.0-51.0 % Monocytes (%) (Auto) 17.6 H 3.0-13.0 % Eosinophils (%) (Auto) 1.7 0.0-8.0 % Basophils (%) (Auto) 0.3 0.0-5.0 % Neutrophils # (Auto) 3.0 1.8-7.7 K/uL Lymphocytes # (Auto) 1.7 1.0-4.8 K/uL Monocytes # (Auto) 1.0 0.1-1.0 K/uL Eosinophils # (Auto) 0.10 0.00-0.70 K/uL Basophils # (Auto) 0.02 0.00-0.20 K/uL Absolute Immature Granulocyte (auto 0.04 0-1 K/uL Nucleated Red Blood Cells 0.0 0.0-0.19 % White Cell Morphology Comment See comments Chemistry Labs: Test 07/18/24 14:51 07/18/24 03:20 07/17/24 15:57 Range/Units Whole Blood Glucose 279 H 70-110 MG/DL Sodium Level 130 L 136-145 mmol/L Potassium Level 4.2 3.5-5.1 mmol/L Chloride Level 95 L 101-111 mmol/L Carbon Dioxide Level 28 21-32 mmol/L Blood Urea Nitrogen 30 H 7-18 mg/dL Creatinine 2.2 H 0.5-1.3 mg/dL Glomerular Filtration Rate Calc 34 >90 mL/min Random Glucose 285 H 70-105 mg/dL Hemoglobin A1c 10.8 H 4.0-6.0 % Estimated Average Glucose (eAG) 263 H 70-126 mg/dL Total Calcium 8.9 8.5-10.1 mg/dL Magnesium Level 2.10 1.80-2.40 mg/dL Total Bilirubin 0.6 0.2-1.0 mg/dL Aspartate Amino Transf (AST/SGOT) 27 10-37 U/L Alanine Aminotransferase (ALT/SGPT) 32 12-78 U/L Alkaline Phosphatase 87 50-136 U/L Total Protein 7.4 6.0-8.3 g/dL Albumin 2.5 L 3.5-5.0 g/dL Total Creatine Kinase 108 21-232 U/L Troponin I High Sensitivity 10 4-75 ng/L B-Type Natriuretic Peptide 46 0-100 pg/mL Triglycerides Level 200 30-200 mg/dL Cholesterol Level 194 <200 mg/dL LDL Cholesterol 82 0-99 mg/dL HDL Cholesterol 49 29-71 mg/dL Coagulation Labs: Test 07/17/24 15:57 Range/Units Prothrombin Time 10.4 9.6-11.6 SEC Prothromb Time International Ratio 0.98 0.85-1.15 Activated Partial Thromboplast Time 22.8 L 26.3-35.5 SEC D-Dimer Quantitative (PE/DVT) 2060 *H 0-500 ng/mL ASSESSMENT: Acute renal failure Anemia Fluid overload UTI Electrolyte derangement sodium 130 Diabetes type 2 Uncontrolled essential hypertension s/p ground level fall, sustained knee abrasion morbid obesity PLAN: Labs, diagnostic, radiologic exams reviewed and interpreted by myself and supervising physician. We have reviewed external records in detail Discontinue IV fluids. Start Nephro-Jake daily Obtain UA Require close monitoring of renal function and electrolytes Order CBC, CMP, uric acid, TSH, complete iron panel, ferritin and electrolytes in am IV iron/Epogen as needed Continue with antibiotics BiPAP as necessary, for respiratory distress Monitor blood pressure adjust medication doses as needed Avoid hypotensive episodes May use Dilaudid 0.5 mg IV every 6 hours as needed for severe pain Monitor blood sugars Strict intake, output, and daily weight should be monitored Please renally adjust medications Avoid nephrotoxic and nonsteroidal drugs Avoid contrast if possible Will continue to monitor renal function, anemia, electrolytes Treatment plan discussed with patient Questions were answered We have discussed with the other team physicians in detail about the care plan We will continue to monitor the patient closely Thank you for allowing us to participate in the care of this patient ATTESTATION BY PHYSICIAN I have seen and examined the patient. I reviewed the documentation, medical decision making, and treatment plan as noted by the mid-level provider above. I agree with the findings and plan of care. ALDEN FRANCIS MD, [facility] July 18, 2024 15:53
--- NOTE | 2024-07-18 16:15 | NUR ---
Order received and Pt eval attempted. Patient was busy with RAUL Mendez in the am and was in shower in pm when PT attempted eval second time. PT team to follow.
[2024-07-18] MEDS: levoFLOXacin 250 MG/D5W 50ML 50 ML IVPB SCH (17:44)
[2024-07-19] VITALS (8 sets, daily range): BP systolic 116–182; BP diastolic 93–109; PULSE 76–108; RESP 18–35; TEMP 97.7–98.2
[2024-07-19 06:25] LABS: HEMATOCRIT 33.7 % (42-54); MEAN CORPUSCULAR HEMOGLOBIN 27.5 pg (27.0-33.0); MEAN CORPUSCULAR HGB CONC 32.9 g/dL (32.0-36.0); MEAN CORPUSCULAR VOLUME 83.4 fL (79-99); RED BLOOD CELL COUNT(AUTO) 4.04 MIL/uL (4.50-6.20); RED CELL DISTRIBUTION WIDTH 14.3 % (11.0-15.5)
[2024-07-19 06:53] LABS: ALBUMIN 2.7 g/dL (3.5-5.0); BILIRUBIN,TOTAL 0.4 mg/dL (0.2-1.0); CREATININE 1.8 mg/dL (0.5-1.3); MAGNESIUM 2.3 mg/dL (1.80-2.40); PHOSPHORUS 4.4 mg/dL (2.5-4.9); POTASSIUM 4.8 mmol/L (3.5-5.1); THYROID STIMULATING HORMONE 1.98 uIU/mL (0.36-3.74); TOTAL PROTEIN, SERUM 7.9 g/dL (6.0-8.3); URIC ACID 6.6 mg/dL (2.6-7.2)
[2024-07-19 07:46] LABS: % IRON SATURATION 26.6 % (30-44)
[2024-07-19] MEDS: Vitamin B Complex/Vit C/Folic Acid PO SCH (09:07)
--- NOTE | 2024-07-19 11:12 | DS ---
Discharge Summary Hospital Course Summary: This is a 58-year-old male that presents in ED with evaluation of shortness a breath patient was sent by his PCP. 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 Cruz apparently patient has been complaining about shortness a breath therefore is here for further evaluation. Ongoing for three months patient was started on Lasix given to lower extremity edematous +2. Associated symptoms vomiting he reports it being cleared and salty. Patient denied chest pain, or palpitation. Patient reports this morning he was walking and had a ground level fall and scraped his knee. Patient denies fever and chills, flank pain. 07/19/23 patient was sitting in chair edematous to lower extremity improved. Patient's cough improved. Being treated for UTI waiting for leather belt maker's for further workup if needed. Patient denied chest pain doing well on room air. 07/20/23 patient is hemodynamically stable for discharge. Denied chest pain, shortness a breath palpitations dizziness. Patient on room air saturations above 95%. Denies any cough any sputum. Manager Media Relations's appreciate their input given to patient's symptoms is unknown, but acute HFpEF and an underlying PE have been ruled out.no recommend any further cardiac workup/testing/procedures. Consider pulmonary consultation. PCP we will arrange pulmonary early referral. Creatinine improving trending down. Urine output adequately. Lasix was ordered by his PCP: will Hold instructed to take as needed for lower ext edema: encouraged to elevated lower extremities throughout the day. and avoid sodium intake verbalized understanding. Procedure(s): REASON: SWELLIHNG TO LOWER EXT: RULED OUT OCCULSION ORDERING PHYSICIAN: ANDERS GUTIERREZ NP PROCEDURE: ART B LE - US ARTERIAL BILAT LOW EXT DUPL Exam Type: US ARTERIAL BILAT LOW EXT DUPL Clinical Information: SWELLIHNG TO LOWER EXT: RULED OUT OCCULSION Comparison: None Findings: Diffuse bilateral plaque is identified. There are normal triphasic waveforms of the right common femoral artery, right mid superficial femoral artery, left common femoral artery through the superficial femoral artery, left popliteal artery, left runoff. There are biphasic waveforms of the right proximal and distal superficial femoral artery, right popliteal artery, right runoff consistent with moderate nonocclusive hemodynamically significant disease. IMPRESSION: Peripheral vascular disease as noted. REASON: swellin g ORDERING PHYSICIAN: ANDERS GUTIERREZ NP PROCEDURE: VENOUS MAGI - US VENOUS DOPPLER BILATERAL ULTRASOUND VENOUS DOPPLER, BILATERAL LOWER EXTREMITIES INDICATION: Bilateral lower extremity pain and swelling TECHNIQUE: Routine grayscale and color Doppler ultrasound of the bilateral lower extremity veins performed. COMPARISON: No priors. FINDINGS: The demonstrated veins of the bilateral lower extremity including the common femoral vein, femoral vein, and popliteal vein are associated with normal compressibility, augmentation, and flow. Normal respiratory variation was identified. No evidence for echogenic intraluminal thrombus formation. IMPRESSION: No sonographic evidence for deep venous thrombosis within the bilateral lower extremity veins. REASON: abd distention, vomiting ORDERING PHYSICIAN: ANDERS GUTIERREZ NP PROCEDURE: ABD PEL WO - CT ABDOMEN/PELVIS W/O CONTRAST CT ABDOMEN WITHOUT CONTRAST. CT PELVIS WITHOUT CONTRAST. INDICATION: Abdominal distention and vomiting TECHNIQUE: Routine transaxial imaging using 5 mm slice thickness through the abdomen and pelvis without the administration of IV contrast. Thin slice reconstructions are also provided. Coronal and sagittal reformatted images acquired for interpretation. CT was performed with one or more of the following dose reduction techniques: Automated exposure control, adjustment of the mA and/or kV according to patient size, or use of iterative reconstruction technique. COMPARISON: None FINDINGS: ON NONCONTRAST IMAGING: ABDOMEN: Heart size is normal. Visible lung bases are clear. No abnormal renal calcifications, hydronephrosis, perinephric inflammation, or proximal hydroureter detected. Small simple right renal cyst. The liver is normal in size and smooth in contour without biliary duct dilation. The spleen is normal in size and attenuation. The gallbladder is absent. The pancreas appears normal without pancreatic duct dilation. The adrenal glands appear normal. No significant abdominal, retrocrural or retroperitoneal adenopathy noted. No evidence for intra-abdominal free air or organized fluid collection. No aortic aneurysmal dilation identified. PELVIS: No abnormal calcifications within the urinary bladder or distal ureters. No evidence for free air or organized pelvic fluid collection. No significant pelvic adenopathy detected. Several diverticula along the colon. Terminal ileum appears unremarkable. The appendix appears normal. Mild thoracolumbar spondylosis. IMPRESSION: Diverticulosis coli without evidence for any acute intra-abdominal or pelvic process. REASON: [place] ORDERING PHYSICIAN: ANDERS GUTIERREZ NP PROCEDURE: RENAL - US RENAL SONOGRAM ULTRASOUND RENAL COMPLETE INDICATION: Acute kidney injury TECHNIQUE: Routine ultrasound of the kidneys and urinary bladder with grayscale and color Doppler imaging was performed in real-time, and subsequently made available for review. COMPARISON: No prior studies available for comparison. FINDINGS: The right kidney measures 13.1 x 5.0 x 5.4 cm. No abnormal mass demonstrated. No evidence for hydronephrosis or shadowing stone. The left kidney measures 12.9 x 5.8 x 6.1 cm. No abnormal mass demonstrated. No evidence for hydronephrosis or shadowing stone. Urinary bladder is incompletely distended. No free fluid demonstrated. IMPRESSION: Normal sonographic appearance of the kidneys and urinary bladder. REASON: sob ORDERING PHYSICIAN: KIMBERLEY ALBARRAN MD PROCEDURE: PULM V P - NM PULMONARY/LUNG VENT/PERF VQ NM PULMONARY/LUNG VENT/PERF VQ HISTORY: sob TECHNIQUE: The patient was injected with 5mCi of technetium 99 MAA. Anterior, posterior and oblique images were obtained. 6 mCi of xenon-133 was used for the ventilation part of the study. Comparison study chest x-ray dated 07/17/2024 FINDINGS: There is homogeneous distribution of the radiotracer in both lungs. There is normal hilar and cardiac attenuation defect. No large wedge-shaped or focal perfusion defects are seen. IMPRESSION: Low probability for PE. Assessment/Plan: Discharged dx's; ongoing Shortness a breath with minimal exertion POA Suspecting PE POA LOW PROBABILITY PE UTI POA Electrolyte derangement sodium 130 BLAINE suspecting ATN POA Diabetes type 2 with hyperglycemia Uncontrolled essential hypertension s/p ground level fall, sustained knee abrasion POA morbid obesity: BMI 42 POA' Peripheral vascular disease POA PLAN: [ ] ADMISSION DATE: 07/17/2024 DISCHARGE DATE: 07/19/2024 DISPOSITION: Home CONDITION: Stable UNIT AID(S): Manager Media Relations's raimann machine operator's FOLLOW UP APPOINTMENT(S): PCP: Dr Jose L Gonsales MD will need pulmologist referral, 2-[address] Cruz 2/4 wks. PROCEDURES: none IMAGING (S) report attached to summary : Arterial ultrasound, venous ultrasound, abdomen pelvis CT scan, renal ultrasound, long scan V/Q, checks x- ray MICROBIOLOGY: report attached to summary; none ACTIVITY: ab kaycee HOME MEDICATIONS:None where profile: stated lasix will be deferred: for now as needed for edema to lower ext NEW MEDICATIONS: Tessalon as needed for cough TEACHING:avoid sodium in diet. Emergency instructions: The patient was instructed to present to the nearest Emergency Department or call 911 should their symptoms return or worsen. Home Medications: Unable to Obtain Active Prescriptions or Reported Meds New Medications: Benzonatate (Tessalon Perles) 100 Mg Cap 1 CAP PO TID PRN for COUGH for 10 Days, #30 CAP 0 Refills Doxycycline Monohydrate (Doxycycline Monohydrate) 100 Mg Capsule 1 CAP PO BID for 5 Days, #10 CAP 0 Refills Time spent arranging discharge: 31-60 minutes ATTESTATION BY PHYSICIAN I have seen and examined the patient. I reviewed the documentation, medical decision making, and treatment plan as noted by the mid-level provider above. I agree with the findings and plan of care. DOUGIE HEBERT MD, [facility] NP July 19, 2024 11:12
[2024-07-19] MEDS ORDERED: BENZ-39 PO (11:13)
[2024-07-19] MEDS ORDERED: DOXY-466 PO (11:16)
[2024-07-19] MEDS: INSULIN humuLIN R 100 UNIT/ML 3ML SQ ONE ×2 (13:13→18:38)
--- NOTE | 2024-07-19 16:19 | PN ---
NEPHROLOGY PROGRESS NOTE Date/Time Patient Seen: July 19, 2024 Reason for Consultation: 16:18 SUBJECTIVE: This is a 58-year-old male that presents in ED with evaluation of shortness a breath patient was sent by his PCP. 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 Cruz apparently patient has been complaining about shortness a breath therefore is here for further evaluation. He continues on gentle IV hydration. He has been started on antibiotics Continues to be followed by Cardiology He was noted to have elevated BUN/creatinine Renal function and electrolytes are stable He was seen in the medical floor, in no acute No family at the bedside Prognosis remains guarded REVIEW OF SYSTEMS: GENERAL: Positive for lower extremity edema and shortness of breath NEUROLOGIC: Negative for any blurry vision, blind spots, double vision, facial asymmetry, dysphagia, dysarthria, hemiparesis, hemisensory deficits, vertigo, ataxia. HEENT: Negative for any head trauma, neck trauma, neck stiffness, photophobia, phonophobia, sinusitis, rhinitis. CARDIAC: Negative for any chest pain, dyspnea on exertion, paroxysmal nocturnal dyspnea, peripheral edema. PULMONARY: Negative for any shortness of breath, wheezing, COPD, or TB exposure. GASTROINTESTINAL: Negative for any abdominal pain, nausea, vomiting, bright red blood per rectum, melena. GENITOURINARY: Negative for any dysuria, hematuria, incontinence. INTEGUMENTARY: Negative for any rashes, cuts, insect bites. RHEUMATOLOGIC: Negative for any joint pains, photosensitive rashes, history of vasculitis or kidney problems. HEMATOLOGIC: Negative for any abnormal bruising, frequent infections or bleeding. PHYSICAL EXAM: GENERAL: Alert and oriented x 3. No acute distress. Well-nourished. EYES: EOMI. Anicteric. HENT: Moist mucous membranes. No scleral icterus. No cervical lymphadenopathy. LUNGS: Clear to auscultation bilaterally. No accessory muscle use. CARDIOVASCULAR: Regular rate and rhythm. No murmur. No JVD. ABDOMEN: Soft, non-tender and non-distended. No palpable masses. EXTREMITIES: 2+ edema. Non-tender. SKIN: No rashes or lesions. Warm. NEUROLOGIC: No focal neurological deficits. CN II-XII grossly intact, but not individually tested. PSYCHIATRIC: Cooperative. Appropriate mood and affect. LABORATORY: [ ] Hematology Labs: Test 07/19/24 06:12 07/18/24 03:20 Range/Units White Blood Count 6.0 4.8-10.8 K/uL Red Blood Count 4.04 L 4.50-6.20 MIL/uL Hemoglobin 11.1 L 14.0-18.0 g/dL Hematocrit 33.7 L 42-54 % Mean Corpuscular Volume 83.4 79-99 fL Mean Corpuscular Hemoglobin 27.5 27.0-33.0 pg Mean Corpuscular Hemoglobin Concent 32.9 32.0-36.0 g/dL Red Cell Distribution Width 14.3 11.0-15.5 % Platelet Count 272 130-400 K/uL Mean Platelet Volume 10.1 7.5-10.5 fL Nucleated Red Blood Cells 0.0 0.0-0.19 % Immature Granulocyte % (Auto) 0.7 0-1 % Neutrophils (%) (Auto) 51.1 40.0-77.0 % Lymphocytes (%) (Auto) 28.6 21.0-51.0 % Monocytes (%) (Auto) 17.6 H 3.0-13.0 % Eosinophils (%) (Auto) 1.7 0.0-8.0 % Basophils (%) (Auto) 0.3 0.0-5.0 % Neutrophils # (Auto) 3.0 1.8-7.7 K/uL Lymphocytes # (Auto) 1.7 1.0-4.8 K/uL Monocytes # (Auto) 1.0 0.1-1.0 K/uL Eosinophils # (Auto) 0.10 0.00-0.70 K/uL Basophils # (Auto) 0.02 0.00-0.20 K/uL Absolute Immature Granulocyte (auto 0.04 0-1 K/uL Chemistry Labs: Test 07/19/24 15:31 07/19/24 06:12 07/18/24 03:20 Range/Units Whole Blood Glucose 355 H 70-110 MG/DL Sodium Level 132 L 136-145 mmol/L Potassium Level 4.8 3.5-5.1 mmol/L Chloride Level 97 L 101-111 mmol/L Carbon Dioxide Level 28 21-32 mmol/L Blood Urea Nitrogen 29 H 7-18 mg/dL Creatinine 1.8 H 0.5-1.3 mg/dL Glomerular Filtration Rate Calc 43 >90 mL/min Random Glucose 323 H 70-105 mg/dL Uric Acid 6.6 2.6-7.2 mg/dL Total Calcium 9.0 8.5-10.1 mg/dL Phosphorus Level 4.4 2.5-4.9 mg/dL Magnesium Level 2.30 1.80-2.40 mg/dL Iron Level 54 L 65-175 mcg/dL Total Iron Binding Capacity 203 L 250-450 mcg/dL Percent Iron Saturation 26.6 L 30-44 % Ferritin 935 H 30-400 ng/mL Total Bilirubin 0.4 0.2-1.0 mg/dL Aspartate Amino Transf (AST/SGOT) 26 10-37 U/L Alanine Aminotransferase (ALT/SGPT) 37 12-78 U/L Alkaline Phosphatase 98 50-136 U/L Total Protein 7.9 6.0-8.3 g/dL Albumin 2.7 L 3.5-5.0 g/dL Thyroid Stimulating Hormone (TSH) 1.98 0.36-3.74 uIU/mL Hemoglobin A1c 10.8 H 4.0-6.0 % Estimated Average Glucose (eAG) 263 H 70-126 mg/dL DIAGNOSTICS / RADIOLOGY: REASON: SWELLIHNG TO LOWER EXT: RULED OUT OCCULSION ORDERING PHYSICIAN: ANDERS GUTIERREZ NP PROCEDURE: ART B LE - US ARTERIAL BILAT LOW EXT DUPL Exam Type: US ARTERIAL BILAT LOW EXT DUPL Clinical Information: SWELLIHNG TO LOWER EXT: RULED OUT OCCULSION Comparison: None Findings: Diffuse bilateral plaque is identified. There are normal triphasic waveforms of the right common femoral artery, right mid superficial femoral artery, left common femoral artery through the superficial femoral artery, left popliteal artery, left runoff. There are biphasic waveforms of the right proximal and distal superficial femoral artery, right popliteal artery, right runoff consistent with moderate nonocclusive hemodynamically significant disease. IMPRESSION: Peripheral vascular disease as noted. DICTATED BY: MALORIE DE LEÓN MD DATE: 07/18/247 REASON: crow rebolledo ORDERING PHYSICIAN: ANDERS GUTIERREZ NP PROCEDURE: VENOUS MAGI - US VENOUS DOPPLER BILATERAL ULTRASOUND VENOUS DOPPLER, BILATERAL LOWER EXTREMITIES INDICATION: Bilateral lower extremity pain and swelling TECHNIQUE: Routine grayscale and color Doppler ultrasound of the bilateral lower extremity veins performed. COMPARISON: No priors. FINDINGS: The demonstrated veins of the bilateral lower extremity including the common femoral vein, femoral vein, and popliteal vein are associated with normal compressibility, augmentation, and flow. Normal respiratory variation was identified. No evidence for echogenic intraluminal thrombus formation. IMPRESSION: No sonographic evidence for deep venous thrombosis within the bilateral lower extremity veins. DICTATED BY: GASTON BURNETT MD DATE: 07/17/244 REASON: abd distention, vomiting ORDERING PHYSICIAN: ANDERS GUTIERREZ NP PROCEDURE: ABD PEL WO - CT ABDOMEN/PELVIS W/O CONTRAST CT ABDOMEN WITHOUT CONTRAST. CT PELVIS WITHOUT CONTRAST. INDICATION: Abdominal distention and vomiting TECHNIQUE: Routine transaxial imaging using 5 mm slice thickness through the abdomen and pelvis without the administration of IV contrast. Thin slice reconstructions are also provided. Coronal and sagittal reformatted images acquired for interpretation. CT was performed with one or more of the following dose reduction techniques: Automated exposure control, adjustment of the mA and/or kV according to patient size, or use of iterative reconstruction technique. COMPARISON: None FINDINGS: ON NONCONTRAST IMAGING: ABDOMEN: Heart size is normal. Visible lung bases are clear. No abnormal renal calcifications, hydronephrosis, perinephric inflammation, or proximal hydroureter detected. Small simple right renal cyst. The liver is normal in size and smooth in contour without biliary duct dilation. The spleen is normal in size and attenuation. The gallbladder is absent. The pancreas appears normal without pancreatic duct dilation. The adrenal glands appear normal. No significant abdominal, retrocrural or retroperitoneal adenopathy noted. No evidence for intra-abdominal free air or organized fluid collection. No aortic aneurysmal dilation identified. PELVIS: No abnormal calcifications within the urinary bladder or distal ureters. No evidence for free air or organized pelvic fluid collection. No significant pelvic adenopathy detected. Several diverticula along the colon. Terminal ileum appears unremarkable. The appendix appears normal. Mild thoracolumbar spondylosis. IMPRESSION: Diverticulosis coli without evidence for any acute intra-abdominal or pelvic process. DICTATED BY: GASTON BURNETT MD DATE: 07/17/241846 REASON: [place] ORDERING PHYSICIAN: ANDERS GUTIERREZ NP PROCEDURE: RENAL - US RENAL SONOGRAM ULTRASOUND RENAL COMPLETE INDICATION: Acute kidney injury TECHNIQUE: Routine ultrasound of the kidneys and urinary bladder with grayscale and color Doppler imaging was performed in real-time, and subsequently made available for review. COMPARISON: No prior studies available for comparison. FINDINGS: The right kidney measures 13.1 x 5.0 x 5.4 cm. No abnormal mass demonstrated. No evidence for hydronephrosis or shadowing stone. The left kidney measures 12.9 x 5.8 x 6.1 cm. No abnormal mass demonstrated. No evidence for hydronephrosis or shadowing stone. Urinary bladder is incompletely distended. No free fluid demonstrated. IMPRESSION: Normal sonographic appearance of the kidneys and urinary bladder. DICTATED BY: GASTON BURNETT MD DATE: 07/17/24 180 REASON: sob ORDERING PHYSICIAN: KIMBERLEY ALBARRAN MD PROCEDURE: PULM V P - NM PULMONARY/LUNG VENT/PERF VQ NM PULMONARY/LUNG VENT/PERF VQ HISTORY: sob TECHNIQUE: The patient was injected with 5mCi of technetium 99 MAA. Anterior, posterior and oblique images were obtained. 6 mCi of xenon-133 was used for the ventilation part of the study. Comparison study chest x-ray dated 07/17/2024 FINDINGS: There is homogeneous distribution of the radiotracer in both lungs. There is normal hilar and cardiac attenuation defect. No large wedge-shaped or focal perfusion defects are seen. IMPRESSION: Low probability for PE. DICTATED BY: SHAR CHU MD DATE: 07/17/242058 REASON: SOB ORDERING PHYSICIAN: KIMBERLEY ALBARRAN MD PROCEDURE: CXR1VW - CHEST 1VW Exam Type: CHEST 1VW Clinical Information: SOB Comparison: None Findings: The lungs are clear of infiltrates. The heart is enlarged. Bony and soft tissue structures of the chest wall are unremarkable. IMPRESSION: Cardiomegaly. Clear lungs. DICTATED BY: MALORIE DE LEÓN MD DATE: 07/17/24 1622 ASSESSMENT: Acute renal failure Anemia Fluid overload UTI Electrolyte derangement sodium 130 Diabetes type 2 Uncontrolled essential hypertension s/p ground level fall, sustained knee abrasion morbid obesity PLAN: Labs, diagnostic, radiologic exams reviewed and interpreted by myself and supervising physician. We have reviewed external records in detail From the nephrology standpoint, he may be discharged Follow-up in the renal clinic in 1-2 weeks Require close monitoring of renal function and electrolytes Order CBC, CMP, and electrolytes in am BiPAP as necessary, for respiratory distress Monitor blood pressure adjust medication doses as needed Avoid hypotensive episodes May use Dilaudid 0.5 mg IV every 6 hours as needed for severe pain Monitor blood sugars Strict intake, output, and daily weight should be monitored Please renally adjust medications Avoid nephrotoxic and nonsteroidal drugs Avoid contrast if possible Will continue to monitor renal function, anemia, electrolytes Treatment plan discussed with patient Questions were answered We have discussed with the other team physicians in detail about the care plan We will continue to monitor the patient closely ATTESTATION BY PHYSICIAN I have seen and examined the patient. I reviewed the documentation, medical decision making, and treatment plan as noted by the mid-level provider above. I agree with the findings and plan of care. ALDEN FRANCIS MD, [facility] July 19, 2024 16:19
--- NOTE | 2024-07-19 19:25 | NUR ---
PT TAKEN DOWNSTAIRS FOR DISCHARGE VIA WHEELCHAIR. NO DISTRESS NOTED. BROTHER WAITING IN PRIVATE IN FRONT LOBBY.
--- NOTE | 2024-07-19 19:35 | NUR ---
PATIENT GIVEN DISCHARE INSTRUCTIONS WITH COPY OF DISCHARGE SUMMARY DISCHARGED HOME
== END 2024-07-19 19:25 | disposition home or self-care (01) ==
LOC: EDH 14:59 → 4CH 15:00 → EDHIP 15:00 → UNDOADMOB 15:00 → INTOOBSV 15:00 → 4CH 23:33 → EDHIP 23:33 → 4CH 07-19 11:00 → EDHIP 07-19 11:00 → UNDOADMOB 07-19 11:00
PROVIDERS: ADMIT Internal Medicine; ATTEND Internal Medicine
DX: R06.02 Shortness of breath (principal); N39.0 Urinary tract infection, site not specified; E11.51 Type 2 diabetes mellitus with diabetic peripheral angiopathy without gangrene; E78.5 Hyperlipidemia, unspecified; E87.70 Fluid overload, unspecified; I25.10 Atherosclerotic heart disease of native coronary artery without angina pectoris; I10 Essential (primary) hypertension; I25.2 Old myocardial infarction; Z86.73 Personal history of transient ischemic attack (TIA), and cerebral infarction without residual deficits; R60.0 Localized edema; D64.9 Anemia, unspecified; Z98.890 Other specified postprocedural states; Z79.899 Other long term (current) drug therapy
CPT/HCPCS: 96361 ×2; 99285; 82550; 83735 ×3; 84484; 80061; 80048; 83880; 85025 ×2; 85378; 85610; 85730; 87086 ×2; 87186; 81001; 36415 ×3; 71045; 74176; 78582; 76770; 93970; 96365; 93005; 96372 ×2; 96366; 83036; 80053 ×2; 82948 ×6; 93925; 84443; 83540; 83550; 84100; 84550; 82728; 85027; 97161; 97116; J1956 ×2; J7030; A9540; A9558; J1644 ×3; G0378 ×6; J1815 ×2